=== PATIENT | female | born 1970 | race Caucasian/White ===

== ENCOUNTER → 2016-06-21 15:51 | Outpatient (CLI) | payer MEDICAID | END | disposition home or self-care (01) | LOC: D.MAMMO 11:30 | DX: Z12.31 Encounter for screening mammogram for malignant neoplasm of breast (principal) ==

== ENCOUNTER 2017-09-06 17:38 | Emergency (ER) | payer MEDICAID ==
[~2017-09-06] VITALS: Ht 160 cm; Wt 78.2 kg
[2017-09-06 17:47] VITALS: Ht 160 cm; Wt 78.2 kg
[2017-09-06] MEDS ORDERED: NORVASC10 MG PO (17:50)
[2017-09-06] MEDS ORDERED: ORAPRED ODT10 MG/TAB PO (17:50)
[2017-09-06] MEDS ORDERED: IBUPROFEN800 MG (17:50)
[2017-09-06] MEDS ORDERED: LOPRESSOR25 MG PO (17:50)
[2017-09-06] MEDS ORDERED: XANAX1 MG PO (17:51)
[2017-09-06] MEDS ORDERED: NEURONTIN 300300 MG (17:51)
[2017-09-06] MEDS ORDERED: HYDROCODONE-APA1 TAB (17:52)
[2017-09-06] MEDS ORDERED: TREXALL5 MG PO (17:53)
[2017-09-06] MEDS ORDERED: MORPHINE SULFAT15 M4 PO (17:54)
[2017-09-06] MEDS ORDERED: PREMARIN45 GM VG (17:55)
[2017-09-06] MEDS ORDERED: OMEPRAZOLE20 M1 PO (17:55)
[2017-09-06] MEDS ORDERED: VOLTAREN75 MG PO (18:53)
[2017-09-06 19:27] VITALS: BP 141/79
== END 2017-09-06 19:22 | disposition home or self-care (01) ==
LOC: D.ER 17:38
DX: S93.402A Sprain of unspecified ligament of left ankle, initial encounter (principal); W01.0XXA Fall on same level from slipping, tripping and stumbling without subsequent striking against object, initial encounter; Y93.89 Activity, other specified; Y92.019 Unspecified place in single-family (private) house as the place of occurrence of the external cause; I10 Essential (primary) hypertension; K21.9 Gastro-esophageal reflux disease without esophagitis

== ENCOUNTER → 2018-08-30 10:21 | Outpatient (CLI) | payer MEDICAID ==
[2017-09-06 17:47] VITALS: BMI 30.5
[~2018-08-30 10:21] MED LIST: HYDROCODONE-APA1 TAB; IBUPROFEN800 MG; LOPRESSOR25 MG PO; MORPHINE SULFAT15 M4 PO; NEURONTIN 300300 MG; NORVASC10 MG PO; OMEPRAZOLE20 M1 PO; ORAPRED ODT10 MG/TAB PO; PREMARIN45 GM VG; TREXALL5 MG PO; VOLTAREN75 MG PO; XANAX1 MG PO
== END | disposition home or self-care (01) ==
LOC: D.HCCARDIO 10:21
PROVIDERS: ATTEND Internal Medicine Cardiovascular Disease
DX: I20.9 Angina pectoris, unspecified (principal); R06.02 Shortness of breath

== ENCOUNTER 2018-09-07 07:47 | Outpatient (CLI) | payer MEDICAID ==
[~2018-09-07] VITALS: Ht 160 cm; Wt 80.9 kg
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
[~2018-09-07 07:47] MED LIST changes: -NEURONTIN 300300 MG; +NEURONTIN 300300 MG PO
[2018-09-07] MEDS ORDERED: IBUPROFEN800 MG PO (08:23)
[2018-09-07] MEDS ORDERED: EDARBYCLOR 40-1 EAC1 PO (08:24)
[2018-09-07] MEDS ORDERED: CATAPRES0.1 MG PO (08:24)
[2018-09-07] MEDS ORDERED: FOLIC ACID1 MG PO (08:26)
[2018-09-07] MEDS ORDERED: XELJANZ5 MG PO (08:27)
[2018-09-07 08:29] VITALS: BP 148/78; Ht 160 cm; Wt 80.9 kg
[2018-09-07 08:42] LABS: BASOPHILS 0.1 % (0-2); EOSINOPHILS 0.4 % (0-7); HEMATOCRIT 37.5 % (36.0-48.0); HEMOGLOBIN 12.6 g/dL (12-16); IMMATURE GRANULOCYTES 0.5 % (0-5); LYMPHOCYTES 9.8 % (15-50); MCH 28.8 pg (26.0-34.0); MCHC 33.6 g/dL (31.0-37.0); MCV 85.8 fL (80.0-100.0); MEAN PLATELET VOLUME 8.9 fL (7.4-10.4); MONOCYTES 6.5 % (2-11); NEUTROPHILS 82.7 % (40-80); PLATELET COUNT 236 10x3/uL (130-400); RBC 4.37 10x6/uL (4.00-5.40); WBC 13.8 10x3/uL (4.8-10.8)
[2018-09-07 08:55] LABS: CALC OSMOLALITY 264 mosm/kg (275-300); CALCIUM 9.1 mg/dL (8.5-10.1); CARBON DIOXIDE 24.3 mmol/L (21.0-32.0); CHLORIDE - SERUM 97 mmol/L (98-107); CREATININE - SERUM 0.8 mg/dL (0.6-1.3); GLUCOSE 113 mg/dL (74-106); POTASSIUM - SERUM 4.1 mmol/L (3.5-5.1); SODIUM 131 mmol/L (136-145); UREA NITROGEN 14 mg/dL (7-18); eGFR NON AFRICAN AMERICAN 81 mL/min (90-120)
[2018-09-07] MEDS ORDERED: BAYER CHEWABLE81 MG PO (11:08)
[2018-09-07] MEDS ORDERED: PLAVIX75 MG PO (11:08)
--- NOTE | 2018-09-07 11:32 | NUR ---
PT SITTING UP IN BED, VISITING WITH AND SON IN THE ROOM. PT HAS VOIDED APPROX 600 CC CLEAR YELLOW URINE TO BEDPAN. REQUESTS SODA AND COFFEE AND THESE SERVED. TR BAND IS CDI TO RIGHT WRIST, FINGERS WARM AND CAP REFILL IS BRISK. CALL LIGHT IN REACH.
--- NOTE | 2018-09-07 11:44 | NUR ---
PT HAS TOLERATED PO FLUIDS WITH NO C/O NAUSEA. SANDWICH AT BEDSIDE. TR BAND IS CDI, FINGERS WARM AND CAP REFILL IS BRISK. S[place] AT 49, PT DENIES ANY C/O CHEST PAIN. BP IS 136/65. PT IS ALERT, SITTING UP IN BED VISITING WITH FAMILY, CALL LIGHT IN REACH, DENIES NEEDS AT THIS TIME.
--- NOTE | 2018-09-07 12:07 | NUR ---
PT DENIES ANY C/O. TR BAND IS CDI, FINGERS WARM AND CAP REFILL IS BRISK. FAMILY AT BEDSIDE. PT PHILLIP SANDWICH WITH NO NAUSEA. S[place] AT 54, BP IS 120/64.
--- NOTE | 2018-09-07 12:33 | NUR ---
DR CHAMBERLAIN HAS ROUNDED ON PT. PT DENIES ANY C/O. TR BAND IS CDI, FINGERS WARM AND CAP REFILL IS BRISK. S[place] AT 50, DENIES ANY C/O CHEST PAIN. BP IS 121/63. AT BEDSIDE, DR CHAMBERLAIN HAS ROUNDED ON PT.
--- NOTE | 2018-09-07 13:19 | NUR ---
PT ALERT, DENIES ANY C/O. TR BAND IS CDI, FINGERS WARM AND CAP REFILL IS BRISK. S[place] AT 51, BP IS 134/66. PT SITTING UP IN BED, VISITING WITH FAMILY. HAS VOIDED QS USING BEDPAN. CALL LIGHT IN REACH.
--- NOTE | 2018-09-07 13:44 | OP ---
PATIENT NAME: QASIM JOHN MEDICAL RECORD: [id number] :70 LOCATION:D.CAT ADMISSION DATE: SURGEON: CATARINO CHAMBERLAIN MD DATE OF OPERATION: 09/07/2018 PROCEDURES: 1. PTCA stent LAD. 2. PTCA stent RCA. 3. IFR RCA. 4. Left heart catheterization. 5. Selective coronary angiography. 6. Left ventriculogram. INDICATION: Class 3-4 anginal symptomatology. PROCEDURE IN DETAIL: After informed consent was obtained and after a detailed description of the risks, benefits as well as alternative therapies, the patient elected to proceed with angiogram and angioplasty. The right radial area was prepped and draped in normal sterile fashion. Right radial artery was cannulated via modified Seldinger technique with placement of 6-Kazakh sheath. All catheters exchanged through this sheath. FINDINGS: Left ventriculogram was performed in standard 30-degree TOLBERT view, reveals good cardiac wall motion throughout all segments. Overall ejection fraction estimated at 65%. SELECTIVE CORONARY ANGIOGRAPHY: 1. Left main is with no significant angiographic disease. 2. Left anterior descending has 90% stenosis in the proximal mid vessel. 3. The left circumflex has moderate irregularities, but no flow-limiting stenosis. 4. Right coronary artery has 80% stenosis in the mid vessel. IFR is significantly abnormal. PTCA STENT OF THE LAD: The stent used was a 2.5 x 26 mm [place]. Result was 0% residual stenosis. PTCA STENT OF THE RCA: The stent used was a 3.0 x 38 mm [place]. Result was 0% residual stenosis and after this IFR was repeated and it normalized. OVERALL IMPRESSION: Successful PTCA stent of the LAD and RCA, both going from 80% to 90% initial stenosis to 0% residual. TRANSINT:[id number] Voice Confirmation ID: [id number] DOCUMENT ID: [id number] CATARINO CHAMBERLAIN MD at 1344 CC: [id number] DICTATION DATE: 09/07/18 1056 NET DEVELOPER PROGRAMMER: 09/07/18 1114 [facility] [address] [place] [address]
--- NOTE | 2018-09-07 13:49 | NUR ---
PT SITTING UP IN BED, VISITING WITH SON, DENIES ANY C/O. TR BAND IS CDI, FINGERS WARM AND CAP REFILL IS BRISK.
--- NOTE | 2018-09-07 14:20 | NUR ---
1405 ATTEMPTED TO WEAN AIR FROM TR BAND WITH OOZING NOTED WTIH 2 CC WITHDRAWN, AIR REINSTILLED AND OOZING CEASED. FINGERS WARM AND CAP REFILL IS BRISK. PT DENIES ANY C/O. WILL CONTINUE TO MONITOR.
--- NOTE | 2018-09-07 14:34 | NUR ---
2 CC OF AIR WEANED FROM TR BAND WITH NO BLEEDING NOTED. FINGERS WARM AND CAP REFILL IS BRISK. PT IS ALERT AND DENIES ANY C/O.
--- NOTE | 2018-09-07 14:44 | NUR ---
DC INSTRUCTIONS REVIEWED WITH PT, AND SON WHO VERBALIZE UNDERSTANDING. [employer] PRESCRIPTION AND MED COUNSELOR SHEETS TO PT. PT AND VERBALIZE UNDERSTANDING TO START THIS MEDICATION TOMORROW.
--- NOTE | 2018-09-07 15:06 | NUR ---
3 CC OF AIR WEANED FROM TR ABND WITH NO BLEEDING OR HEMATOMA NOTED. FINGERS WARM AND CAP REFILL IS BRISK. ASSISTED PT ONTO BEDPAN AND PT VOIDED LARGE AMOUNT OF CLEAR YELLOW URINE. PT IS ALERT AND DENIES ANY C/O. FAMILY AT BEDSIDE.
--- NOTE | 2018-09-07 15:37 | NUR ---
1520 ALL REMAINING AIR WEANED FROM TR BAND WTIH NO BLEEDING NOTED. FINGERS WARM AND CAP REFILL IS BRISK. RADIAL PULSE PALPABLE. PT IS ALERT AND DENIES ANY C/O. 1530 TR ABND REMOVED AND 2X2, TEGADERM PLACED TO SITE. FINGERS WARM AND CAP REFILL IS BRISK, RADIAL PULSE PALPABLE. IV DC'D WITH CATH INTACT AND PT IS DRESSING FOR DC TO HOME WITH ASSIST. PT IS ALERT AND DENIES ANY C/O.
--- NOTE | 2018-09-07 15:40 | NUR ---
DRESSING REMAINS CDI TP RIGHT WRIST, NO BLEEDING OR HEMATOMA NOTED. FINGERS WARM AND PULSES PALPABLE. PT DENIES ANY NV DEFICIT TO HAND, PT ESCORTED TO PRIVATE AUTO VIA WC BY NURSE WITH DRIVING HER HOME. HAS ALL PERSONAL BELONGINGS AND DC INSTRUCTIONS AT TIME OF DISCHARGE.
== END 2018-09-07 15:40 | disposition home or self-care (01) ==
LOC: D.CATH 07:47
PROVIDERS: ATTEND Internal Medicine Interventional Cardiology
DX: I25.119 Atherosclerotic heart disease of native coronary artery with unspecified angina pectoris (principal); Z01.812 Encounter for preprocedural laboratory examination

== ENCOUNTER 2019-08-27 07:00 | Day surgery (SDC) | payer MEDICAID ==
[2019-08-26 10:06] LABS: HEMOGLOBIN 12.5 g/dL (12-16); MCH 28.7 pg (26.0-34.0); MCHC 31.3 g/dL (31.0-37.0); MEAN PLATELET VOLUME 8.8 fL (7.4-10.4); RBC 4.35 10x6/uL (4.00-5.40); RDW 15.2 % (11.5-14.5); WBC 11.5 10x3/uL (4.8-10.8)
[~2019-08-27] VITALS: Ht 236.2 cm; Wt 72.6 kg
[~2019-08-27 07:00] MED LIST changes: +BAYER CHEWABLE81 MG PO; +CATAPRES0.1 MG PO; +EDARBYCLOR 40-1 EAC1 PO; +FOLIC ACID1 MG PO; +IBUPROFEN800 MG PO; +PLAVIX75 MG PO; +XELJANZ5 MG PO
[2019-08-27 07:31] VITALS: BP 150/93; Ht 236.2 cm; Wt 72.6 kg
[2019-08-27] MEDS ORDERED: PERCOCET 10-321 EAC1 PO (10:08)
--- NOTE | 2019-08-27 10:45 | NUR ---
PATIENT CRYING STATING "THIS HURTS LIKE HELL" WHEN I OFFERED IV PAIN MEDICATION PT DENIED STATING "I JUST WANT TO GO BACK TO MY ROOM WHERE MY IS". I HAVE EDUCATED HER THAT IF I TAKE HER BACK TO [facility] IV PAIN MEDICATION WILL NO LONGER BE AVAILABLE TO GIVE. SHE VERBALIZED UNDERSTANDING.
--- NOTE | 2019-08-27 11:56 | NUR ---
DC INSTRUCTIONS GIVEN TO PT/SPOUSE. STATE UNDERSTANDING. DC'D IV CATH FULLY INTACT. WILL DC FROM OPS UNIT SHORTLY.
--- NOTE | 2019-08-27 12:11 | NUR ---
PT LEFT UNIT VIA WC AT 1210
--- NOTE | 2019-08-28 07:06 | OP ---
PATIENT NAME: QASIM HOPPER MEDICAL RECORD: [id number] :70 LOCATION:DOV ADMISSION DATE: SURGEON: JAYESH LORA DO DATE OF OPERATION: 08/27/2019 PROCEDURE PERFORMED: Right radial head arthroplasty. PREOPERATIVE DIAGNOSIS: Right radial neck fracture nonunion. POSTOPERATIVE DIAGNOSIS: Right radial neck fracture nonunion. INDICATIONS: Ms. Hopper is a 49-year-old female who has had right elbow pain for quite some time. She does not recall falling, but said this could have happened months or years ago. She came to my office. We x-rayed and saw the nonunion of the radial neck. I informed her that she could do nothing that should cause her quite a bit of pain and it was catching on her and I informed her if that was the case, we could do something surgically and I told her we would do a radial head replacement. I informed of the risk of that including infection, bleeding, damage to nerves and vessels, need for further surgery, damage the radial nerve especially, continued pain, dislocation, further fracture, failure of implants and she is okay with all that and signed a consent. SURGEON: Jayesh Lora DO DESCRIPTION OF PROCEDURE: The patient was taken to the operative suite, laid in supine position, given general anesthetic, 2 grams of Ancef and LMA was placed. She was given a block by anesthesia in the preoperative area prior to going back. We then prepped and draped the right upper extremity. A timeout was performed; everyone was in agreement with the correct side, site, patient and procedure. I then began the incision over the lateral epicondyle distally over the extensor carpi radialis longus tendon and careful dissection made down to that and then was split. Fibers were split. Radial head was exposed and it was removed. I made fresh cut of the radial neck and then I used a broach and broached up to a 9 and seemed to fit well and the 9 stem was trialed with a +2 neck. We got x-rays. I need to grind down the radial neck just a little bit more. We put the implant in and took x-rays and it fit very nicely. The right upper extremity was exsanguinated with an Esmarch prior to starting the procedure and tourniquet was inflated to 250 mmHg, was up for 30 minutes. Once the implant was in, the tourniquet was let down. X-rays were taken and ensured to be in very good position, had good range of motion and no instability. I then closed the extensor carpi radialis longus with a #1 Vicryl, first [id number]-nptop then a running stitch. Vincent Alba, certified surgical assistant softball coach then came in and closed the skin with 2-0 Vicryl inverted fashion, 4-0 Monocryl ran on the skin. Steri-Strips were placed on the skin. She was then dressed with Adaptic, 4 x 4s, and cast padding and then Jesse wrap from the hand all the way up pass the elbow. She was awakened and taken to recovery in stable condition. BLOOD LOSS: Minimal. COMPLICATIONS: None. TRANSINT:[id number] Voice Confirmation ID: [id number] DOCUMENT ID: [id number] OPERATIVE REPORT [id number] QASIM HOPPER MICHAEL D, DO at 0706 CC: [id number] DICTATION DATE: 08/27/19 1014 [employer] SALES: 08/27/19 2211 [facility] 08/27/19 [facility] [address] [place] [address]
== END 2019-08-27 12:10 | disposition home or self-care (01) ==
LOC: D.OPS 07:00 → D.PAN 11:40 → D.OPS 12:10 → D.PAN 14:00
PROVIDERS: Anesthesiology; ATTEND Orthopaedic Surgery
DX: S52.134A Nondisplaced fracture of neck of right radius, initial encounter for closed fracture (principal); X58.XXXA Exposure to other specified factors, initial encounter

== ENCOUNTER 2019-11-28 09:37 | Inpatient (IN) | payer MEDICAID ==
[~2019-11-28] VITALS: Ht 160 cm; Wt 72.7 kg
[~2019-11-28 09:37] MED LIST changes: +PERCOCET 10-321 EAC1 PO
[2019-11-28 10:56] LABS: BASOPHILS 0.2 % (0-2); EOSINOPHILS 0.2 % (0-7); HEMATOCRIT 40.5 % (36.0-48.0); HEMOGLOBIN 13.1 g/dL (12-16); IMMATURE GRANULOCYTES 0.2 % (0-5); LYMPHOCYTES 4.9 % (15-50); MCH 29.6 pg (26.0-34.0); MCHC 32.3 g/dL (31.0-37.0); MCV 91.4 fL (80.0-100.0); MONOCYTES 5.3 % (2-11); NEUTROPHILS 89.2 % (40-80); PLATELET COUNT 220 10x3/uL (130-400); RBC 4.43 10x6/uL (4.00-5.40); WBC 12.4 10x3/uL (4.8-10.8)
[2019-11-28 11:05] LABS: ANION GAP 12.7 mmol/L (8-16); CALCIUM 8.5 mg/dL (8.5-10.1); CARBON DIOXIDE 23.7 mmol/L (21.0-32.0); POTASSIUM - SERUM 3.4 mmol/L (3.5-5.1)
[2019-11-28 11:13] LABS: ALBUMIN 3.7 g/dL (3.4-5.0); BILIRUBIN - TOTAL 0.3 mg/dL (0.2-1.3); MAGNESIUM - SERUM 2.1 mg/dL (1.8-2.4); PROTEIN - SERUM 7.4 g/dL (6.4-8.2)
--- NOTE | 2019-11-28 13:15 | NUR ---
URINE SENT TO THE LAB
--- NOTE | 2019-11-28 13:45 | NUR ---
REPORT RECIEVED FROM OJ IN ER. PATIENT TO FLOOR VIA WHEELCHAIR. DENIES PAIN OR NEEDS. FOOD TRAYS ORDERED. PATIENT ORIENTED TO PLACE, TIME, PERSON, AND SITUATION. BED LOW POSITION, CALL LIGHT IN REACH, WILL CONTINUE TO MONITOR.
[2019-11-28] MEDS ORDERED: ADIPEX-P37.5 M1 PO (13:49)
[2019-11-28 14:00] VITALS: BP 140/83; Ht 160 cm; Wt 72.7 kg
[2019-11-28 18:07] VITALS: BP 122/80
[2019-11-28 20:00] VITALS: BP 184/107
[2019-11-29] VITALS (11 sets, daily range): BP systolic 112–136; BP diastolic 64–83
--- NOTE | 2019-11-29 04:43 | NUR ---
ASSESSED AT THE BEGINNING OF THE SHIFT. PT IS ALERT AND ORIENTED, ABLE TO VERBALIZE NEEDS. SHE RECEIVED TORADOL AROUND 2200 AND THIS SEEMED TO EASE HER PAIN IN THE ARM FRACTURE. LATER IN THE EARY MORNING SHE AWOKE AND WAS HURTING PRETTY BAD AND RECEIVED MORPHINE. SHE HAS HER FRACTURED ARM ELAVATED AND IS SLEEPING WITH HER SIGNIFICANT OTHER. SHE IS AWAKRE SHE MUCH BE READY FOR SURGERY TODAY.
[2019-11-29 06:09] LABS: HEMATOCRIT 37.7 % (36.0-48.0); HEMOGLOBIN 12.1 g/dL (12-16); LYMPHOCYTES 21.3 % (15-50); MCH 29.5 pg (26.0-34.0); MCHC 32.1 g/dL (31.0-37.0); MEAN PLATELET VOLUME 9.4 fL (7.4-10.4); NEUTROPHILS 68.2 % (40-80); PLATELET COUNT 207 10x3/uL (130-400); RDW 14.6 % (11.5-14.5)
[2019-11-29 06:18] LABS: ALBUMIN 3.3 g/dL (3.4-5.0); ALKALINE PHOSPHATASE 130 U/L (30-120); ALT (SGPT) 16 U/L (10-68); BILIRUBIN - TOTAL 0.27 mg/dL (0.2-1.3); CALC OSMOLALITY 267 mosm/kg (275-300); CALCIUM 8.6 mg/dL (8.5-10.1); CARBON DIOXIDE 25.4 mmol/L (21.0-32.0); CHLORIDE - SERUM 101 mmol/L (98-107); CREATININE - SERUM 0.8 mg/dL (0.6-1.3); GLUCOSE 97 mg/dL (74-106); POTASSIUM - SERUM 3.2 mmol/L (3.5-5.1); PROTEIN - SERUM 6.7 g/dL (6.4-8.2); SODIUM 135 mmol/L (136-145); UREA NITROGEN 8 mg/dL (7-18); eGFR NON AFRICAN AMERICAN 81 mL/min (90-120)
[2019-11-29 06:47] LABS: WBC 8.6 10x3/uL (4.8-10.8)
--- NOTE | 2019-11-29 07:48 | NUR ---
PATIENT IN BED ASLEEP, SPOUSE AT BEDSIDE. DENIES ANY PAIN OR NEEDS AT THIS TIME. BED LOW POSITION, CALL LIGHT IN REACH. WILL CONTINUE TO MONITOR.
--- NOTE | 2019-11-29 11:40 | NUR ---
PATIENT TO PROCEDURE VIA BED.
[2019-11-30 04:00] VITALS: BP 142/84
[2019-11-30 05:57] LABS: BASOPHILS 0.1 % (0-2); EOSINOPHILS 0 % (0-7); HEMATOCRIT 37.9 % (36.0-48.0); IMMATURE GRANULOCYTES 0.2 % (0-5); LYMPHOCYTES 5.1 % (15-50); MCH 29.3 pg (26.0-34.0); MCHC 31.7 g/dL (31.0-37.0); MCV 92.4 fL (80.0-100.0); MEAN PLATELET VOLUME 9.7 fL (7.4-10.4); MONOCYTES 6.1 % (2-11); NEUTROPHILS 88.5 % (40-80); PLATELET COUNT 240 10x3/uL (130-400); RDW 15.4 % (11.5-14.5)
[2019-11-30 06:08] LABS: ALBUMIN 2.9 g/dL (3.4-5.0); ALKALINE PHOSPHATASE 126 U/L (30-120); ALT (SGPT) 15 U/L (10-68); BILIRUBIN - TOTAL 0.19 mg/dL (0.2-1.3); CALCIUM 8.5 mg/dL (8.5-10.1); CHLORIDE - SERUM 104 mmol/L (98-107); CREATININE - SERUM 0.8 mg/dL (0.6-1.3); POTASSIUM - SERUM 4.3 mmol/L (3.5-5.1); PROTEIN - SERUM 6.5 g/dL (6.4-8.2); SODIUM 137 mmol/L (136-145); WBC 13.9 10x3/uL (4.8-10.8); eGFR NON AFRICAN AMERICAN 81 mL/min (90-120)
[2019-11-30 06:13] LABS: CALC OSMOLALITY 277 mosm/kg (275-300); GLUCOSE 190 mg/dL (74-106); UREA NITROGEN 11 mg/dL (7-18)
--- NOTE | 2019-11-30 08:57 | OP ---
PATIENT NAME: QASIM HOPPER MEDICAL RECORD: [id number] :70 LOCATION: [id number] ADMISSION DATE:11/29/19 SURGEON: TAMAR LORA DO DATE OF OPERATION: 11/29/2019 PROCEDURE PERFORMED: Right distal radius open reduction internal fixation. PREOPERATIVE DIAGNOSIS: Right distal radius fracture, extraarticular. POSTOPERATIVE DIAGNOSIS: Right distal radius fracture, extraarticular. INDICATIONS: Ms. Hopper is a 49-year-old female who fell yesterday on an outstretched hand and suffered a right distal radius fracture. She could not tolerate the pain, was admitted overnight for surgery today. She was splinted in the ER and admitted for pain in anticipation for surgery today. She is aware of the risks including infection, bleeding, damage to nerves or vessels, malunion, nonunion, failure of hardware, need for further surgery and the rules of no lifting with that arm until released and she signed the consent as well as damage to the median nerve specifically. She received a block by anesthesia in the preoperative area. DESCRIPTION OF PROCEDURE: She was given 2 grams of Ancef preoperatively, taken to the operative suite, laid in supine position, given general anesthetic. Right upper extremity was then prepped and draped in sterile fashion.: LMA was placed. A timeout was performed. Everyone was in agreeance with the correct side, site, patient and procedure. The right upper extremity was then exsanguinated with an Esmarch tourniquet, was inflated to 250 mmHg, it was up for 47 minutes. I then made an incision over the flexor carpi radialis tendon and made careful dissection down to the fracture, peeled off the pronator quadratus exposing the fracture. It was quite comminuted. Once I got good reduction, I put the plate on and once the plate was in adequate position, fixed in the shaft first and then distally and then more screws into the shaft and then put bone chips into the void. She had a large void on the radial side and to the distal radius. These were stuffed with bone chips. The tourniquet was then let down and the site was irrigated. Vincent Alba, certified surgical oncology physician assistant, and closed the wound with 3-0 Vicryl in inverted interrupted fashion and Prineo glue placed on the skin. She was then dressed with Adaptic, 4 x 4s, cast padding, and a volar splint, wrapped with an Jesse wrap, awakened and taken to recovery in stable condition. BLOOD LOSS: Approximately 50 mL. COMPLICATIONS: None. TRANSINT:[id number] Voice Confirmation ID: [id number] DOCUMENT ID: [id number] TAMAR LORA DO at 0857 CC: [id number] DICTATION DATE: 11/29/19 1356 [employer] STRAP: 11/29/19 2246 ADM IN [place] [id number] [place] [id number]
[2019-11-30] MEDS ORDERED: VISTARIL50 MG PO (09:43)
[2019-11-30] MEDS ORDERED: PERCOCET 10-321 EAC1 PO (09:43)
[2019-11-30 09:49] VITALS: BP 157/103
--- NOTE | 2019-11-30 11:29 | NUR ---
IV DCD WITH CATH TIP INTACT. LEFT UNIT VIA WHEELCHAIR FOR TRANSPORT HOME
== END 2019-11-30 11:30 | disposition home or self-care (01) | DRG 563 ==
LOC: D.ER 09:37 → OBSVTIME 13:09 → D.MS 13:09
PROVIDERS: Family Medicine; ADMIT Orthopaedic Surgery; ATTEND Orthopaedic Surgery
DX: S52.501A Unspecified fracture of the lower end of right radius, initial encounter for closed fracture (principal); F17.203 Nicotine dependence unspecified, with withdrawal; W19.XXXA Unspecified fall, initial encounter; I10 Essential (primary) hypertension; F17.200 Nicotine dependence, unspecified, uncomplicated; M06.9 Rheumatoid arthritis, unspecified; M81.0 Age-related osteoporosis without current pathological fracture; M19.90 Unspecified osteoarthritis, unspecified site; F41.9 Anxiety disorder, unspecified; G25.81 Restless legs syndrome; M79.7 Fibromyalgia; Q24.9 Congenital malformation of heart, unspecified

== ENCOUNTER → 2020-08-25 22:18 | Outpatient (CLI) | payer MEDICAID ==
[2020-03-22 01:45] VITALS: BMI 30.8
[~2020-08-25 22:18] MED LIST changes: +ADIPEX-P37.5 M1 PO; +CLARITIN 10 MG10 MG PO; +HYDROCODON-ACE1 EA10 PO; +IPRAT-ALBUT 0.5-3 ML INH; +MUCINEX600 MG PO; +NICODERM CQ1 EAC3 TRANSDERM; +PREDNISONE10 MG PO; +VISTARIL50 MG PO
[2020-08-26 01:23] LABS: BASOPHILS 0.5 % (0-2); EOSINOPHILS 0.4 % (0-7); HEMATOCRIT 37.7 % (36.0-48.0); HEMOGLOBIN 11.6 g/dL (12-16); LYMPHOCYTES 10.4 % (15-50); MCH 27.9 pg (26.0-34.0); MCHC 30.8 g/dL (31.0-37.0); MCV 90.4 fL (80.0-100.0); MONOCYTES 4.6 % (2-11); NEUTROPHILS 84.1 % (40-80); RBC 4.17 10x6/uL (4.00-5.40); RDW 17.2 % (11.5-14.5)
[2020-08-26 01:24] LABS: PLATELET COUNT 336 10x3/uL (130-400)
[2020-08-26 02:27] LABS: ERYTHROCYTE SEDIMENTATION RATE 34 mm/hr (0-30)
== END | disposition home or self-care (01) ==
LOC: D.LABREF 22:18
PROVIDERS: ATTEND Nurse Practitioner Family
DX: M25.521 Pain in right elbow (principal)

== ENCOUNTER 2020-08-28 08:54 | Day surgery (SDC) | payer MEDICAID ==
[~2020-08-28] VITALS: Ht 160 cm; Wt 84.8 kg
[2020-08-28 09:16] LABS: BASOPHILS 0.7 % (0-2); EOSINOPHILS 1.8 % (0-7); HEMATOCRIT 35.4 % (36.0-48.0); HEMOGLOBIN 11.4 g/dL (12-16); LYMPHOCYTES 24.1 % (15-50); MCH 27.9 pg (26.0-34.0); MCHC 32.1 g/dL (31.0-37.0); MCV 86.6 fL (80.0-100.0); MEAN PLATELET VOLUME 6.9 fL (7.4-10.4); MONOCYTES 8.5 % (2-11); NEUTROPHILS 64.9 % (40-80); PLATELET COUNT 348 10x3/uL (130-400); RBC 4.09 10x6/uL (4.00-5.40); RDW 16.7 % (11.5-14.5); WBC 11.5 10x3/uL (4.8-10.8)
[2020-08-28 09:26] LABS: ANION GAP 9.2 mmol/L (8-16); CALCIUM 8.6 mg/dL (8.5-10.1); CARBON DIOXIDE 29.2 mmol/L (21.0-32.0); CREATININE - SERUM 0.9 mg/dL (0.6-1.3); POTASSIUM - SERUM 4.4 mmol/L (3.5-5.1)
[2020-08-28 10:04] VITALS: BP 168/95; Ht 160 cm; Wt 84.8 kg
[2020-08-28 11:01] LABS: CKMB 1.1 U/L (0.0-3.6); CREATINE KINASE 76 UL (21-215)
[2020-08-28 11:02] LABS: TROPONIN-I 0.125 ng/mL (0.000-0.060)
--- NOTE | 2020-08-28 11:11 | NUR ---
1015 PT C/O CHEST PAIN RADIATING UP INTO NECK. PT WARM AND DRY. NO NAUSEA OR VOMITING. 12 LEAD EKG COMPLETED. DURING QUESTIONING PT STATES THAT THIS IS THE SAME TYPE OF PAIN THAT SHE HAD WHEN SHE HAD HER MD. DR EUCEDA NOTIFIED. 1029 CARDIAC ENZYMES HAVE BEEN ORDERED. AYDEN CAMPBELL AT PT'S BEDSIDE TALKING TO PT. PT STATES HER CP IS BECAUSE SHE IS ANXIOUS AND HER BP IS ELEVATED BECAUSE OF THE PAIN IN HER RIGHT ELBOW.
--- NOTE | 2020-08-28 11:16 | NUR ---
1030 IV HAS BEEN STARTED AND VALIUM GIVEN TO PT. 1100 INITIAL TROPIN LEVEL IS ELEVATED 0.131 AND THE MACHINE IS REPEATING TO VERIFY TROPONIN LEVEL. 1110 REPEAT TROPONIN LEVEL IS 0.125. DR LORA AND DR EUCEDA NOTIFIED. CARDIAC CONSULT REQUESTED BY DR LORA. 1115 DR LINARES IS THE PT'S GUITAR MAKER HAND. A REQUEST HAS BEEN SUBMITTED TO HIM FOR EVALUATION. PT HAS BEEN DOWNPLAYING HER CHEST PAIN SINCE SHE FIRST REPORTED HURTING. SHE IS STATING THAT SHE HAS SOME DISCOMFORT IN HER CHEST BUT IT IS NOT RADIATING TO NECK OR ARM. SKING WARM AND DRY. BP 178/93 1140 PHYSICIAN TO PHYSICAN COMMUNICATION BETWEEN DR FIERRO AND DR EUCEDA. DR LINARES TO COME SEE PT
--- NOTE | 2020-08-28 11:55 | NUR ---
1150 DR LINARES AT BEDSIDE EVALUATING PT.
--- NOTE | 2020-08-28 15:10 | NUR ---
1230 PT HAS RECEIVED PLAVIX ORDERED BY DR LINARES. PT GIVEN PERCOCET PRESCRIPTION BY DR LORA FOR RIGHT ELBOW PAIN. SHE STATED HER NORCO WAS NOT GIVING HER PAIN RELIEF AND SHE FELT LIKE HER BP WAS ELEVATED SECONDARY TO THE PAIN. DISCHARGE INSTRUCTIONS REVIEWED WITH PT AND HER WHO VOICE UNDERSTANDING OF THESE INSTRUCTIONS. PT REPORTS NOT HAVING CHEST PAIN AT THIS TIME. SHE UNDERSTANDS THE RATIONALE FOR FOR HER SURGERY BEING POSTPONED AND IS IN AGREEMENT WITH THE MEDICAL [facility] FOR CARDIAC CATHETERIZATION ON MONDAY. PT VERBALIZES FEEDBACK THAT IF SHE HAS CP OVER THE WEEKEND NOT RELIEVED BY NTG THAT SHE WILL GO TO THE EMERGENCY ROOM. SHE AND DR SALDANA DISCUSSED THIS WHILE HE WAS AT HER BEDSIDE. IV WAS DC'D AT 1215. CATHETER TIP INTACT. NO BLEEDING AT SITE. COBAN DRESSING APPLIED. PT IS DRESSED AND READY TO GO HOME. PT TAKEN TO HER TRUCK VIA .
--- NOTE | 2020-09-01 08:13 | CN ---
PATIENT NAME:QASIM JOHN MEDICAL RECORD: [id number] : 70 LOCATION:[facility] ADMIT DATE: ACCOUNT: [id number] CONSULTING PHYSICIAN: ALEXUS LINARES MD REFERRING PHYSICIAN: TAMAR LORA DO DATE OF CONSULTATION: 08/28/2020 HISTORY OF PRESENT ILLNESS: A 50-year-old female well known to me with history of coronary artery disease, status post intervention. She has a history of hypertension and has been having intermittent chest pain over the past week. She feels this is secondary to her upcoming surgery. The fact was in the recovery room, she had chest pain without EKG changes; however, she has been having her rest symptomatology as well. Blood pressure was elevated. We were asked to see her concerning her cardiovascular status. PAST MEDICAL HISTORY: Includes; 1. History of coronary artery disease. 2. Dyslipidemia. 3. Hypertension. 4. Fibromyalgia. MEDICATIONS: Include metoprolol 50 b.i.d., Claritin 10 every day, Xanax 1 mg p.o. q.i.d. p.r.n., aspirin 81 every day, Neurontin 600 mg t.i.d., morphine 15 mg b.i.d. ALLERGIES: MEPERIDINE AND EMERIL. SOCIAL HISTORY: Nonsmoker, nondrinker. Easily takes care of her ADLs. REVIEW OF SYSTEMS: The patient reports easy bruising but reports no swollen glands. The patient reports no fever, no night sweats, no significant weight gain, no significant weight loss. No significant exercise tolerance. The patient reports no dry eyes, no irritation, no vision change. Patient reports no difficulty hearing and no ear pain. Patient reports no frequent nose bleeds or nose and sinus problems. Patient reports on arm pain on exertion. No shortness of breath while lying down. No history of heart murmur. Patient reports no cough, no wheezing or coughing up blood. Patient reports no abdominal pain, no vomiting. Normal appetite. No diarrhea and not vomiting blood. No nausea and no constipation. Patient reports no incontinence. No difficulty urinating. No hematuria. No increased frequency. Patient reports no muscle aches. No weakness, no arthralgias, no back pain. No swelling of the extremities. Patient reports no abnormal mole, no jaundice, no rashes. Reports no loss of consciousness. No weakness and no numbness. No seizures, dizziness, or headaches. The patient reports no depression, no sleep disturbance, feeling safe in a relationship and no alcohol abuse. Patient reports on fatigue. Reports no runny nose or sinus pressure. No itching, no hives, and no frequent sneezing. PHYSICAL EXAMINATION: GENERAL: No acute distress, appears stated age, alert and oriented. VITAL SIGNS: Blood pressure 168/95, pulse 66 and regular. HEENT: Normocephalic, atraumatic. NECK: No bruits are noted. HEART: Regular. Questionable S4 gallop. LUNGS: Good air excursion. CONSULT REPORT [id number] ALVAROQASIM SRIVASTAVA ABDOMEN: Soft and nontender. EXTREMITIES: Pulses 2+. No edema. DIAGNOSTIC DATA: EKG shows nonspecific ST-T changes, old inferior. IMPRESSION: Known history of coronary artery disease with rest symptomatology at this point in time. Loaded with Plavix. Add ARB to her medical regime. PLAN: We will plan for diagnostic angiography, intervention based on the above. TRANSINT:[id number] Voice Confirmation ID: [id number] DOCUMENT ID: [id number] ALEXUS LINARES MD at 0813 CC: [id number] DICTATION DATE: 08/28/20 1205 OBJECT ORIENTED DEVELOPER: 08/28/201937 [facility] 08/28/20 [id number] [place] [address]
== END 2020-08-28 12:30 | disposition home or self-care (01) ==
LOC: D.OPS 08:54
PROVIDERS: Anesthesiology; ATTEND Orthopaedic Surgery
DX: S52.134A Nondisplaced fracture of neck of right radius, initial encounter for closed fracture (principal); I25.10 Atherosclerotic heart disease of native coronary artery without angina pectoris; E78.5 Hyperlipidemia, unspecified; I10 Essential (primary) hypertension; R07.9 Chest pain, unspecified; Z53.8 Procedure and treatment not carried out for other reasons

== ENCOUNTER 2020-08-31 06:40 | Day surgery (SDC) | payer MEDICAID ==
[~2020-08-31] VITALS: Ht 160 cm; Wt 86.5 kg
--- NOTE | ~2020-08-31 | HEMODYNAMI ---
PATIENT:QASIM JOHN MEDICAL RECORD: [id number] : 70 LOCATION:D.CAT ADMISSION DATE: 08/31/20 Generatedon:19:16 Patient name: QASIM JOHN Patient #: [id number] SSN: [id number] : 1970 Date of study: 08/31/2020 Page: Of Hemodynamic Procedure Report Patient Data Patient Demographics Procedure consent was obtained First Name: QASIM Gender: Female Last Name: ALVARO : 1970 [facility] Initial: CAROLA Age: 50 year(s) Patient #: [id number] Race: SSN: [id number] Additional ID: [id number] Contact details [address]: [address] [place] [address] State: [place] City: [place] Zip code: [address] Past Medical History Allergies Allergen Reaction Date Comments Reported Demerol 09/07/2018 Other allergy 03/22/2020 demerol, enbrel Other allergy 08/31/2020 demerol, enbrel Admission Admission Data Admission Date: 08/31/2020 Admission Time: 6:40 Arrival Date: 08/31/2020 Arrival Time: 0:00 Admit Source: Other Insurance Payor: Medicaid [facility] #: [id number] Height (in.): 63 BSA: 1.89 (m2) Height (cm.): 160.02 BMI: 33.76 (kg/m2) Weight (lbs.): 190.59 Weight (kg.): 86.45 Lab Results Lab Result Date: 08/31/2020 Lab Result Time: 0:00 Biochemistry Name Units Result Min Max BUN mg/dl 19 --(----)*- 7 18 Creatinine mg/dl 1 --(--*-)-- 0.6 1.3 eGFR ml/min 61.06945 *-(----)-- 90 120 NONAFRICAN CBC Name Units Result Min Max Hematocrit % 37 *-(----)-- 42 54 Hemoglobin g/dl 13 -*(----)-- 13.5 17.5 Procedure Procedure Types Cath Procedure Diagnostic Procedure [facility] w/Coronaries Sedation Charges Moderate Sedation 40-54 minutes Procedure Description Procedure Date Procedure Date: 08/31/2020 Procedure Start Time: 8:58 Procedure End Time: 9:11 Procedure Staff Name Function Adam Sarkar RN Nurse Everardo Wagoner RN Nurse Rolando Guajardo MD Performing Physician Janice Carrasco RT Scrub Sammi Mohamud RT Monitor Procedure Data Cath Procedure Fluoroscopy Diagnostic fluoroscopy Total fluoroscopy Time: 1.6 time: 1.6 min min Diagnostic fluoroscopy Total fluoroscopy dose: 625 dose: 625 mGy mGy Contrast Material Contrast Material Type Amount (ml) Isovue 300 80 Entry Location Entry Primary Successful Side Size Upsize Upsize Entry Closure Succes sful Closure Location (Fr) 1 (Fr) 2 (Fr) Remarks Device Remarks Femoral Right 5 Fr Exoseal artery Estimated blood loss: 5 ml Diagnostic catheters Device Type Used For End Catheter Placement MULTIPACK JL 4.0 5Fr Left Coronary catheter Angiography MULTIPACK 3DRC 5Fr Right Coronary catheter Angiography MULTIPACK Pigtail 5 Fr LV Angiography catheter MULTIPACK JL 4.0 5Fr Left Coronary catheter Angiography Procedure Complications No complications Procedure Medications Medication Administration Route Dosage 0.9% NaCl I.V. 100 ml/hr Oxygen etCO2 Nasal cannula 2 l/min Heparin Flush Bag added to field 2 bags (1000units/500ml NS) Lidocaine 2% added to field 20 Versed I.V. 1 mg Fentanyl I.V. 50 mcg Versed I.V. 1 mg Fentanyl I.V. 50 mcg Versed I.V. 1 mg Vasotec 2.5 mg Lopressor I.V. 5 mg Hemodynamics Rest BSA: 1.89 (m2) HGB: 13 (g/dl) O2 Consumption: Estimated: 177.66 (ml/min) O2 Cons umption indexed: Estimated:94 (ml/min/m) Heart Rate: 60 (bpm) Pressure Samples Time Site Value (mmHg) Purpose Heart Use Rate(bpm) 9:05 LV 110/30,51 Snapshot 70 9:05 LV 132/40,59 Snapshot 69 Gradients Valve Time Site Site Mean SEP/DFP Peak To Heart Use 1 2 (mmHg) (sec/min) Peak Rate (mmHg) (bpm) Aortic 9:05 LV AO 71 Snapshots Pre Cath Intra NCS Post Cath Vital Signs Time Heart Resp SPO2 etCO2 NIBP (mmHg) Rhythm Pain Sedation Rate (ipm) (%) (mmHg) Status Level (bpm) 8:22:43 59 16 35.9 152/86(109) NSR 0 (11) 10(A) , No pain 8:27:01 61 16 34.4 155/90(118) NSR 0 (11) 10(A) , No pain 8:31:22 60 23 35.9 156/91(119) NSR 0 (11) 10(A) , No pain 8:35:40 63 14 35.9 150/83(121) NSR 0 (11) 10(A) , No pain 8:39:58 64 15 97 34.4 160/96(132) NSR 0 (11) 10(A) , No pain 8:44:18 65 12 98 19.4 159/93(138) NSR 0 (11) 10(A) , No pain 8:48:38 65 14 97 38.9 152/93(133) NSR 0 (11) 10(A) , No pain 8:52:58 64 12 98 38.9 156/89(140) NSR 0 (11) 10(A) , No pain 8:57:20 61 15 98 34.4 145/84(119) NSR 0 (11) 10(A) , No pain 9:01:34 62 14 98 36.7 147/88(114) NSR 0 (11) 10(A) , No pain 9:06:33 67 10 97 41.9 166/89(136) NSR 0 (11) 10(A) , No pain 9:10:51 63 12 98 35.9 146/83(122) NSR 0 (11) 10(A) , No pain Medications Time Medication Route Dose Verified Delivered Reason Notes Ef fectiveness by by 8:28:30 Versed I.V. 1 mg Rolando Everardo for sedation [facility] Tre Wagoner RN, MD 8:28:36 Fentanyl I.V. 50 Rolando Everardo for sedation mcg [facility] Tre Wagoner RN, MD 8:31:14 0.9% NaCl I.V. 100 Rolando Mcgee used for ml/hr [facility] Tre chase MD 8:31:22 Oxygen etCO2 2 Rolando Everardo used for Nasal l/min [facility] Tre Wagoner RN procedure cannula 8:31:32 Heparin Flush added 2 Rolando Rolando used for Bag to bags [facility] procedure (1000units/500ml field MD STRONG NS) 8:31:41 Lidocaine 2% added 20ml Rolando Marshall for local to vial [facility] anesthetic field MD STRONG 8:54:22 Versed I.V. 1 mg Rolando Noleny for sedation [facility] Tre Wagoner RN, MD 8:54:25 Fentanyl I.V. 50 Rolando Noleny for sedation mcg [facility] Tre Wagoner RN, MD 8:58:21 Versed I.V. 1 mg Rolando Everardo for sedation [facility] Tre Wagoner RN, MD 9:05:16 Vasotec IV 2.5 Rolando Noleny for mg [facility] Tre Wagoner RN hypertension 9:05:25 Lopressor I.V. 5 mg Rolando Everardo for [facility] Tre Wagoner RN hypertension Procedure Log Time Note 7:21:46 Informed consent obtained and on chart 7:21:55 Diagnostic Cath Status : Elective 7:22:03 Arrival Date: 08/31/2020 12:00:00 AM 7:22:04 Admit Source: Other 7:22:11 Insurance Payor : Medicaid 7:22:27 ACC Patient presents with Stable Angina CCS Anginal Class 2--Slight limitation of ordinary activity. 7:22:31 Procedure Status Elective Heart Cath (OP). 7:22:35 Time tracking: Regular hours (M-F 7:00 - 5:00) 7:22:40 Plan of Care:Hemodynamics will remain stable., Cardiac rhythm will remain stable., Comfort level will be maintained., Respiratory function will remain adequate., Patient/ family verbilizes understanding of procedure., Procedure tolerated without complication., Recovers from procedure without complications.. 7:22:45 Alarms reviewed by R. N. 7:22:45 Sharps counted by scrub and verified by R.N. 7:40:20 Lab Result : Hemoglobin 13 g/dl 7:40:20 Lab Result : Hematocrit 37 % 7:46:16 Patient Height : 63 inches 7:46:22 Patient Weight : 190.59 lbs 7:54:47 Lab Result : eGFR NONAFRICAN 61.70395 ml/min 7:54:47 Lab Result : Creatinine 1 mg/dl 7:54:47 Lab Result : BUN 19 mg/dl 8:11:00 Everardo Wagoner RN sent for patient. Start room use. 8:16:08 Patient received from Pre/Post Procedure Room to CCL 1 Alert and oriented. Tansferred to table in Supine position. 8:16:10 Warm blankets applied, and laurie hugger turned on for patient comfort. 8:16:10 Correct patient and procedure confirmed by team. 8:16:11 ECG and BP/O2 sat monitors applied to patient. 8:16:14 Full Disclosure recording started 8:16:19 Pre-procedure instructions explained to patient. 8:16:20 Pre-op teaching completed and patient verbalized understanding. 8:16:22 Family in waiting room. 8:16:24 Patient NPO since Midnight. 8:16:42 Patient allergic to Other allergydemerol, enbrel 8:16:45 Is the patient allergic to Iodine/contrast media? No. 8:16:46 Was the patient premedicated? Yes 8:16:48 Is patient on blood thinner?No 8:16:53 Lab results completed and on chart. 8:16:57 Stress Test: no; N/A ? 8:21:37 Vital chart was started 8:26:39 Baseline sample Acquired. 8:26:49 Rhythm: sinus rhythm 8:26:57 Patient diabetic? No. 8:26:59 Previous problem with sedation/anesthesia? No ? 8:27:02 Snore? Yes 8:27:03 Sleep apnea? No 8:27:04 Deviated septum? No 8:27:05 Opens mouth fully? Yes 8:27:06 Sticks out tongue? Yes 8:27:09 Airway obstruction? No ? 8:27:15 Dentures? Yes IN TIGHT 8:27:26 Pre procedure: right dorsailis pedis pulse 2+ Normal; easily identifiable; not easily obliterated 8:27:29 Pre procedure: left dorsailis pedis pulse 2+ Normal; easily identifiable; not easily obliterated 8:27:32 Patient pain scale 0/10 ?. 8:27:37 IV patent on arrival in left antecubital with 0.9% NaCl at O. 8:27:53 Right groin area was prepped with chlora-prep and draped in sterile fashion 8::58 Physician arrived 8::58 --------ALL STOP TIME OUT------ 8:27:59 Final Timeout: patient, procedure, and site verified with staff and physician. All members of the team are in agreement. 8:28:03 Right groin site verified by team. 8:28:06 Fire Safety Assessment: A--An alcohol-based skin anteseptic being used preoperatively., C--Open oxygen or nitrous oxide is being used., D--An ESU, laser, or fiber-optic light is being used. 8:28:15 Physical assessment completed. ASA score P 2 - A patient with mild systemic disease as per Rolando Guajardo MD. 8:28:30 Versed 1 mg I.V. was administered by Everardo Wagoner RN; for sedation; Verbal order read back and verified. 8:28:36 Fentanyl 50 mcg I.V. was administered by Everardo Wagoner RN; for sedation; Verbal order read back and verified. 8:29:45 2) 60-89 Mildly reduced kidney function, and other findings (as for stage 1) point to kidney disease. 8:29:49 Sedation plan: IV Moderate Sedation Medication:Versed, Fentanyl 8:31:14 0.9% NaCl 100 ml/hr I.V. was administered by Everardo Wagoner RN; used for procedure; Verbal order read back and verified. 8:31:22 Oxygen 2 l/min etCO2 Nasal cannula was administered by Everardo Wagoner RN; used for procedure; Verbal order read back and verified. 8:31:32 Heparin Flush Bag (1000units/500ml NS) 2 bags added to field was administered by Rolando Guajardo MD; used for procedure; Verbal order read back and verified. 8:31:41 Lidocaine 2% 20ml vial added to field was administered by Rolando Guajardo MD; for local anesthetic; Verbal order read back and verified. 8:37:51 Risk of Mortality: 0.1 8:38:01 Risk of blood transfusion: 0.4 8:38:05 Risk of JOB: 0.6 8:38:13 Maximum allowable contrast dose (3.7 X eGFR X 0.75)172 ml. 8:38:55 Use device set Femoral Dx 8:38:56 ACIST Syringe (26548) opened to sterile field. 8:38:57 Bag Decanter (2002S) opened to sterile field. 8:38:57 Medline Cath Pack ([id number]) opened to sterile field. 8:38:58 ACIST Hand Control (59726) opened to sterile field. 8:38:59 ACIST Manifold (20990) opened to sterile field. 8:38:59 DIAGNOSTIC Multipack 5Fr catheter set (NS2516) opened to sterile field. 8:39:00 Tegaderm 4 x 4 (1626W) opened to sterile field. 8:39:01 SHEATH 5FR [place] (VDL774) opened to sterile field. 8:39:02 EMERALD Guide Wire (078-730) opened to sterile field. 8:54:22 Versed 1 mg I.V. was administered by Everardo Wagoner RN; for sedation; Verbal order read back and verified. 8:54:25 Fentanyl 50 mcg I.V. was administered by Everardo Wagoner RN; for sedation; Verbal order read back and verified. 8:58:21 Versed 1 mg I.V. was administered by Everardo Wagoner RN; for sedation; Verbal order read back and verified. 8:58:39 Procedure started. 8:58:47 Local anesthetic to right femoral artery with Lidocaine 2% by Rolando Guajardo MD.INITIAL ACCESS ONLY 8:58:59 A 5 Fr sheath was inserted into the Right Femoral artery 8:59:38 A MULTIPACK JL 4.0 5Fr catheter was advanced over the wire and used for Left Coronary Angiography. 8:59:59 LCA angiography performed. 9:00:02 Injector settings: Ml/sec: 3, Volume: 6, 9:01:59 Catheter removed. 9:02:04 A MULTIPACK 3DRC 5Fr catheter was advanced over the wire and used for Right Coronary Angiography. 9:03:27 RCA angiography performed. 9:03:30 Injector settings: Ml/sec: 3, Volume: 6, 9:03:32 Catheter removed. 9:03:37 A MULTIPACK Pigtail 5 Fr catheter was advanced over the wire and used for LV Angiography. 9:05:16 Vasotec 2.5 mg IV was administered by Everardo Wagoner RN; for hypertension; Verbal order read back and verified. 9:05:19 LV hemodynamics recorded. 9:05:21 LV gram done using TOLBERT 9:05:25 Lopressor 5 mg I.V. was administered by Everardo Ciaran RN; for hypertension; Verbal order read back and verified. 9:05:39 EF : 40 % 9:05:46 Catheter removed. 9:07:45 A MULTIPACK JL 4.0 5Fr catheter was advanced over the wire and used for Left Coronary Angiography. 9:07:52 LCA angiography performed. 9:07:55 Injector settings: Ml/sec: 3, Volume: 6, 9:09:26 Catheter removed. 9:09:28 EXOSEAL 5Fr (EX500) opened to sterile field. 9:09:39 Sheath removed intact; hemostasis achieved with Exoseal to the Right Femoral artery. 9:09:47 Procedure ended.(Physican Out) 9:09:59 Fluoroscopy time 01.60 minutes. 9:10:04 Fluoroscopy dose: 625 mGy 9:10:04 Flurop Dose total: 625 9:10:12 Dose Area Product 48831 mGy/cm. 9:10:16 Contrast amount:Isovue 300 80ml. 9:10:18 Maximum allowable dose exceeded? No. 9:10:19 Sharps counted by scrub and verified by R.N. 9:10:20 Insertion/operative site no bleeding no hematoma. 9:10:24 Post-op/insertion site Right Femoral artery dressed using a 4 x 4 and Tegaderm. 9:10:26 Post right femoral artery:stable 9:10:34 Post Procedure Pulses reassessed and unchanged 9:10:38 Post procedure rhythm: unchanged. 9:10:40 Estimated blood loss: 5 ml 9:10:42 Post procedure instruction explained to patient.Patient verbalizes understanding. 9:10:43 Patient needs reinforcement of post procedure teaching. 9:11:34 Procedure type changed to Cath procedure, Diagnostic procedure, LHC, [facility] w/Coronaries, Sedation Charges, Moderate Sedation 40-54 minutes 9:11:35 Procedure and supply charges have been captured, reviewed, submitted and are correct. 9:11:39 Procedure Complication : No complications 9:11:42 Vital chart was stopped 9:11:44 [facility] Findings: MVD- MD will discuss options w/ pt 9:11:46 Operative report dictated upon procedure completion. 9:11:47 See physician's report for complete and final results. 9:11:49 Report given to Pre/Post Procedure Room. 9:11:51 Patient transfered to Pre/Post Procedure Room with Stretcher. 9:11:54 Procedure ended. 9:11:54 Full Disclosure recording stopped 9:11:59 End room use (Document Last) 9:15:15 End room use (Document Last) 9:15:46 End room use (Document Last) Device Usage Item Name Manufacture Quantity Catalog Hospital Part Current Minimal L ot# / Number Charge Number Stock Stock Serial# Code ACIST Acist 1 [id number] [id number] [id number] [id number] 20 Syringe Medical (90451) Systems Inc Bag Microtek 1 710149 54193 990165 5 Decanter Medical Inc. () Medline Medline 1 [id number] 356950 50110 229175 5 Cath Pack ([id number]) ACIST Hand Acist 1 76427 125796 224656 238531 5 Control Medical (80859) Systems Inc ACIST Acist 1 49796 736826 106811 084535 5 Manifold Medical (40727) Systems Inc DIAGNOSTIC Cardinal 1 [id number] 595427 05977 711028 30 Multipack Health 5Fr catheter set (UO7110) Tegaderm 4 3M 1 1626W 979913 444210 684380 5 x 4 (1626W) SHEATH 5FR Terumo 1 VSW875 844225 326366 928170 5 [place] (QIV458) EMERALD Cardinal 1 502-455 177481 201171 538127 5 Guide Wire [facility] (502-455) MULTIPACK Cardinal 1 661550 5 JL 4.0 5Fr Health catheter MULTIPACK Cardinal 1 676462 5 3DRC 5Fr Health catheter MULTIPACK Cardinal 1 273414 5 Pigtail 5 Health Fr catheter EXOSEAL 5Fr Cardinal 1 EX500 799226 885432 938025 10 (EX500) Health Signature Audit [place] Stage Time Signature Unsigned Intra-Procedure 08/31/2020 Sammi Mohamud 9:15:15 AM RT(R) Intra-Procedure 08/31/2020 Everardo Wagoner RN 9:15:46 AM Intra-Procedure 08/31/2020 Rolando Arauz 9:16:05 AM Tre STRONG [facility] [address] [place] [address]
[2020-08-31] MEDS ORDERED: COZAAR50 MG PO (06:56)
[2020-08-31] MEDS ORDERED: PERCOCET 10-321 EAC1 PO (06:57)
[2020-08-31 07:25] VITALS: BP 149/86; Ht 160 cm; Wt 86.5 kg
[2020-08-31 07:26] LABS: BASOPHILS 1.1 % (0-2); HEMOGLOBIN 11.8 g/dL (12-16); MCH 27.7 pg (26.0-34.0); MCV 86.6 fL (80.0-100.0); MEAN PLATELET VOLUME 7.4 fL (7.4-10.4); MONOCYTES 7.4 % (2-11); NEUTROPHILS 71.5 % (40-80); PLATELET COUNT 356 10x3/uL (130-400); RBC 4.27 10x6/uL (4.00-5.40); RDW 16.4 % (11.5-14.5)
[2020-08-31 07:53] LABS: ANION GAP 14.4 mmol/L (8-16); CALCIUM 8.4 mg/dL (8.5-10.1); CARBON DIOXIDE 25.4 mmol/L (21.0-32.0); CHOL - HDL RATIO 4.4 ratio (2.3-4.1); LDL-HDL RATIO 2.9 ratio (1.5-3.5); POTASSIUM - SERUM 4.8 mmol/L (3.5-5.1)
--- NOTE | 2020-08-31 09:26 | NUR ---
PT ARRIVED BY STRETCHER. PLACED ON MONITORS. ASSESSMENT COMPLETED. VSS AT THIS TIME. CALL LIGHT WITHIN REACH. PT'S AT BEDSIDE. DR. LINARES ROUNDED AND SPOKE WITH PT'S AND PT.
--- NOTE | 2020-08-31 09:41 | NUR ---
PT RESTING COMFORTABLY. VSS. RIGHT GROIN DRESSING C/D/I. NO S/S OF HEMATOMA NOTED. CALL LIGHT WITHIN REACH. FAMILY AT BEDSIDE. DENIES NAUSEA.
--- NOTE | 2020-08-31 10:10 | NUR ---
PT RESTING COMFORTABLY. VSS AT THIS TIME. CALL LIGHT WITHIN REACH. RIGHT GROIN DRESSING C/D/I. NO S/S OF HEMATOMA NOTED. RIGHT PEDAL PULSE PALPABLE. NO NEEDS AT THIS TIME. DENIES NAUSEA.
[2020-08-31] MEDS ORDERED: ALDACTONE25 MG PO (10:19)
--- NOTE | 2020-08-31 10:30 | NUR ---
RIGHT GROIN DRESSING C/D/I. NO S/S OF HEMATOMA NOTED. RIGHT PEDAL PULSE PALPABLE. PT ALERT AND ORIENTED. HEAD OF BED INC TO 30 DEGREES. TOLERATED WELL. PT SET UP WITH SANDWICH TRAY AND DRINK. DENIES NAUSEA.
--- NOTE | 2020-08-31 11:05 | NUR ---
RIGHT GROIN DRESSING C/D/I. NO S/S OF HEMATOMA NOTED. RIGHT PEDAL PULSE PALPABLE. PIV D/C'D WITH CATH TIP INTACT. TOLERATED WELL. DISCUSSED DISCHARGE INSTRUCTIONS WITH PT AND PT'S FAMILY. THEY VOICED UNDERSTANDING. PT AMBULATED TO RESTROOM. VOIDED WITHOUT DIFFICULTY. STEADY GAIT NOTED. BACK TO ROOM TO GET DRESSED. NO ASSISTANCE NEEDED.
--- NOTE | 2020-08-31 11:20 | NUR ---
RIGHT GROIN DRESSING C/D/I. NO S/S OF HEMATOMA NOTED. PT REFUSED TO GO IN WHEELCHAIR. NO S/S OF DISTRESS NOTED. AMBULATED TO HER VEHICLE WITH HER . ALL BELONGINGS IN HAND.
--- NOTE | 2020-09-01 08:13 | OP ---
PATIENT NAME: QASIM JOHN MEDICAL RECORD: [id number] :70 LOCATION:D.CAT ADMISSION DATE: SURGEON: ALEXUS LINARES MD DATE OF OPERATION: 08/31/2020 PROCEDURE PERFORMED: Left heart catheterization, selective coronary angiography, right femoral approach. CATHETERS: A 5-Fijian sheath, 5/4 left and right Mayo, 5/4 pig. CATHETERS: 1. A 5-Fijian sheath. 2. A 5/4 right Mayo 5/4 pig. The procedure was well tolerated patient to our sheath removed. ExoSeal device was placed. FINDINGS: Left ventriculography 30-degree TOLBERT view shows inferior basilar to mid inferior wall hypokinesis. LV function mildly reduced 40-45%. CORONARY ANATOMY: Left main: Left main was free of disease. LAD has diffuse in-stent restenosis approximately 80% in the previously placed stent. This was a drug-eluting stent appears to be a reasonable target distally. Circumflex has 2 moderate stenosis of 70% in its mid portion right coronary was totally occluded, fills via left to right collaterals. IMPRESSION: Aggressive restenosis and drug-eluting stents. LAD appears to be a 2.5 vessel certainly concerned about a secondary stenosis of intermediate vessel may be best suited for coronary artery bypass grafting. Dr. Garvin will be consulted for this purpose. TRANSINT:[id number] Voice Confirmation ID: [id number] DOCUMENT ID: [id number] ALEXUS LINARES MD at 0813 CC: [id number] DICTATION DATE: 08/31/20921 BIOLOGICAL SCIENCE AIDE: 08/31/20 1028 [facility] 08/31/[address] [address]
== END 2020-08-31 11:20 | disposition home or self-care (01) ==
LOC: D.CATH 06:40
PROVIDERS: ATTEND Internal Medicine Interventional Cardiology
DX: I25.118 Atherosclerotic heart disease of native coronary artery with other forms of angina pectoris (principal); R94.39 Abnormal result of other cardiovascular function study; R07.9 Chest pain, unspecified; I10 Essential (primary) hypertension; E78.5 Hyperlipidemia, unspecified; M79.7 Fibromyalgia

== ENCOUNTER → 2020-09-08 11:23 | Outpatient (CLI) | payer MEDICAID ==
[2020-08-31 07:25] VITALS: BMI 33.7
[~2020-09-08 11:23] MED LIST changes: +ALDACTONE25 MG PO; +COZAAR50 MG PO
== END | disposition home or self-care (01) ==
LOC: D.US 09-07 13:00
PROVIDERS: ATTEND Thoracic Surgery (Cardiothoracic Vascular Surgery)
DX: I25.10 Atherosclerotic heart disease of native coronary artery without angina pectoris (principal)

== ENCOUNTER 2020-09-08 11:34 | Inpatient (IN) | payer MEDICAID ==
[~2020-09-08] VITALS: Ht 160 cm; Wt 84.7 kg
[2020-09-08 13:25] LABS: BASOPHILS 0.5 % (0-2); EOSINOPHILS 0.2 % (0-7); HEMATOCRIT 36.2 % (36.0-48.0); HEMOGLOBIN 11.6 g/dL (12-16); LYMPHOCYTES 10.9 % (15-50); MCH 28.2 pg (26.0-34.0); MCV 88.3 fL (80.0-100.0); MEAN PLATELET VOLUME 7.1 fL (7.4-10.4); MONOCYTES 6.1 % (2-11); NEUTROPHILS 82.3 % (40-80); PLATELET COUNT 320 10x3/uL (130-400); RDW 17.2 % (11.5-14.5); WBC 10.6 10x3/uL (4.8-10.8)
[2020-09-08 13:58] LABS: ALBUMIN 3.6 g/dL (3.4-5.0); ANION GAP 12.8 mmol/L (8-16); BILIRUBIN - TOTAL 0.27 mg/dL (0.2-1.3); CALCIUM 8.7 mg/dL (8.5-10.1); CARBON DIOXIDE 25.3 mmol/L (21.0-32.0); PHOSPHOROUS 3.7 mg/dL (2.5-4.9); POTASSIUM - SERUM 5.1 mmol/L (3.5-5.1); PROTEIN - SERUM 7.8 g/dL (6.4-8.2); T4 THYROXIN - FREE 0.75 ng/dL (0.76-1.46); THYROID STIMULATING HORMONE 0.28 uIU/mL (0.36-3.74); URIC ACID 4.4 mg/dL (2.6-7.2)
[2020-09-08 14:05] LABS: APTT 32.4 SECONDS (22.8-39.4); INR 1.03 (0.85-1.17); PROTIME 12.5 SECONDS (11.6-15.0)
[2020-09-08 14:08] LABS: BILIRUBIN NEGATIVE (NEGATIVE); KETONE NEGATIVE mg/dL (< 1+); NITRITE NEGATIVE (NEGATIVE); PH 6.5 (5.0-8.0); SQUAMOUS EPITHELIAL <1 HPF (0-4); UROBILINOGEN NORMAL mg/dL (< 2); WHITE CELLS - URINE <1 HPF (0-4)
[2020-09-08] MEDS ORDERED: HYDROCODON-ACE1 EA10 PO (14:17)
[2020-09-10] VITALS (38 sets, daily range): BP systolic 103–138; BP diastolic 54–95; BMI 34.4; BMI 34.6
--- NOTE | 2020-09-10 08:02 | NUR ---
CVL AND ARTERIAL LINE PLACED BY ANESTHESIA, SCD AND STOCKING APPLIED POST OP ON LEFT LEG, RIGHT LEG WRAPPED, ON POSITION EXTRA CARE AND PRECAUTIONS TAKEN WITH RIGHT ARM DUE TO BROKEN ELBOW, PADDED AND SECURED WITH MADAI NI.
[2020-09-10 14:57] LABS: BASOPHILS 0.4 % (0-2); EOSINOPHILS 0.3 % (0-7); HEMATOCRIT 32.4 % (36.0-48.0); HEMOGLOBIN 10.3 g/dL (12-16); MCHC 31.7 g/dL (31.0-37.0); MCV 88.5 fL (80.0-100.0); MEAN PLATELET VOLUME 7.1 fL (7.4-10.4); MONOCYTES 6.9 % (2-11); NEUTROPHILS 83.4 % (40-80); PLATELET COUNT 250 10x3/uL (130-400); RBC 3.66 10x6/uL (4.00-5.40); RDW 17.3 % (11.5-14.5); WBC 13.5 10x3/uL (4.8-10.8)
--- NOTE | 2020-09-10 15:00 | NUR ---
ARRIVED TO UNIT AT 1411 VIA BED. CONNECTED TO CLAM DIGGER. ON VENT 7.5 ETT 22 AT THE LIP MIDLINE. VENT SETTINGS SIMV, R-14, TV 500, FIO2 40%, PS 10, PEEP 5. HAS RIJ CVL. PLASMOLYTE AT 100ML/HR AND NITRO AT 10ML/HR HOUR. CLEVIPREX INITIATED UPON ARRIVAL. BOTH NITROGLYCERIN AND CLEVIPREX HAVE BEEN TURNED OFF. ZINACEF INFUSING AT 12.8ML/HR. MIDSTERNAL INCISION LARD TUB WASHER. SUBTERNAL CT TO 20CM WALL SUCTION, NO AIR LEAK NOTED. SILVANA DRAIN X 2, TPM WIRE CONNECTED. TPM CURRENTLY OFF. JUAN TO RIGHT FOREARM SECURED IN PLACE. FRACTURE TO RIGHT FOREARM. LEFT ARM HARVEST SITES IN VEELYN BANDAGE. RLE HARVEST SITES COVERED WITH COBAN DRESSING. MECHELLE HOSE AND SCD TO LLE. WRIST RESTRAINTS INITIATED UPON ARRIVAL PER ORDER. POWERS CATHETER IN PLACE. NURSE AT BEDSIDE FOR CLOSE MONITORING.
[2020-09-10 15:25] LABS: ALKALINE PHOSPHATASE 90 U/L (30-120); ALT (SGPT) 21 U/L (10-68); BILIRUBIN - TOTAL 0.44 mg/dL (0.2-1.3); CALC OSMOLALITY 291 mosm/kg (275-300); CALCIUM 7.7 mg/dL (8.5-10.1); CARBON DIOXIDE 24.5 mmol/L (21.0-32.0); CHLORIDE - SERUM 109 mmol/L (98-107); CREATININE - SERUM 0.8 mg/dL (0.6-1.3); GLUCOSE 171 mg/dL (74-106); POTASSIUM - SERUM 4.5 mmol/L (3.5-5.1); PROTEIN - SERUM 5.5 g/dL (6.4-8.2); SODIUM 144 mmol/L (136-145); UREA NITROGEN 14 mg/dL (7-18); eGFR NON AFRICAN AMERICAN 80 mL/min (90-120)
[2020-09-10 15:48] LABS: APTT 32.3 SECONDS (22.8-39.4); INR 1.29 (0.85-1.17); PROTIME 14.9 SECONDS (11.6-15.0)
--- NOTE | 2020-09-10 16:32 | NUR ---
CARDIOLOGY PAGED AND DR. GONZALES PAGED AT THIS TIME. WAITING ORDNANCE KEEPER BACK.
--- NOTE | 2020-09-10 16:48 | NUR ---
ORTHOPEDICS ONCALL PAGED AT THIS TIME. WAITING CHILD AND ADOLESCENT THERAPIST BACK.
--- NOTE | 2020-09-10 17:19 | NUR ---
LASHONDA SIMMONS WITH FAMILY MEDICINE PAGED AT THIS TIME.
[2020-09-11] VITALS (63 sets, daily range): BP systolic 107–136; BP diastolic 57–72; Ht 160 cm; Wt 84.7 kg
[2020-09-11 05:39] LABS: HEMATOCRIT 29.3 % (36.0-48.0); HEMOGLOBIN 9.4 g/dL (12-16); MCH 28.4 pg (26.0-34.0); MCHC 32.1 g/dL (31.0-37.0); MCV 88.5 fL (80.0-100.0); MEAN PLATELET VOLUME 7.9 fL (7.4-10.4); RBC 3.31 10x6/uL (4.00-5.40); RDW 17.6 % (11.5-14.5); WBC 11.9 10x3/uL (4.8-10.8)
--- NOTE | 2020-09-11 06:24 | NUR ---
Shift summary: Patient arousable to touch with sedation, drifts back to sleep. No sign of distress. Sedation off at 0600. Dressing changed to substernal chest tube sites, cleansed with betadine covered with sterile 4x4s and transparent dressing, biodisc placed to temporary pacer wire x 1. No sign of infection to incision sites. Vessel harvest sites cleansed with betadine, left open to air, skin well approximated with adhesive in place, no ointment applied to sites. Suture in place at substernal sites. Bed bath given, no CHG available, oral care provided.
[2020-09-11 06:25] LABS: ALBUMIN 2.5 g/dL (3.4-5.0); ALKALINE PHOSPHATASE 82 U/L (30-120); ALT (SGPT) 19 U/L (10-68); BILIRUBIN - TOTAL 0.34 mg/dL (0.2-1.3); CALC OSMOLALITY 287 mosm/kg (275-300); CALCIUM 7.2 mg/dL (8.5-10.1); CARBON DIOXIDE 22.2 mmol/L (21.0-32.0); CHLORIDE - SERUM 110 mmol/L (98-107); CREATININE - SERUM 0.6 mg/dL (0.6-1.3); GLUCOSE 163 mg/dL (74-106); POTASSIUM - SERUM 4.4 mmol/L (3.5-5.1); PROTEIN - SERUM 5.4 g/dL (6.4-8.2); SODIUM 143 mmol/L (136-145); UREA NITROGEN 11 mg/dL (7-18); eGFR NON AFRICAN AMERICAN > 90 mL/min (90-120)
--- NOTE | 2020-09-11 08:28 | OP ---
PATIENT NAME: QASIM JOHN MEDICAL RECORD: [id number] :70 LOCATION:D.[id number] ADMISSION DATE:09/10/20 SURGEON: VIMAL JENKINS MD DATE OF OPERATION: 09/10/2020 SURGEON: Vimal Jenkins MD PROCEDURES PERFORMED: 1. Coronary artery bypass graft times 3 (left internal mammary artery to LAD, radial artery from aorta to posterior descending artery, reverse saphenous vein graft from aorta to obtuse marginal). Two arterial and one venous conduit. 2. Left radial artery harvest. 3. Endoscopic saphenous vein harvest. PREOPERATIVE DIAGNOSIS: Coronary artery disease with acute coronary syndrome after anesthesia for fractured right arm. POSTOPERATIVE DIAGNOSIS: Coronary artery disease with acute coronary syndrome after anesthesia for fractured right arm with history of intracoronary stents, smoking, and COPD. ANESTHESIA: General endotracheal anesthesia. ESTIMATED BLOOD LOSS: Total cardiopulmonary bypass with Cell Saver retransfusion. COMPLICATIONS: None. SPECIMENS: DANIAL lymph node. CONDITION: Stable. DISPOSITION: To the CV ICU. COMPLICATIONS: None. OPERATIVE FINDINGS: 1. Transesophageal echocardiography revealed good contractility about 45% ejection fraction with septal dyskinesis before and after cardiopulmonary bypass. 2. Dual vein system of the right lower extremity. 3. Diagonal with severe disease and not grafted LAD 1.5 mm. Good Doppler flow after anastomosis. 4. Radial artery was a good conduit harvested open harvest left upper extremity. The PDA 1.5 mm good flow after anastomosis. 5. Obtuse marginal 1.5 mm with severe disease. 6. The patient had significant hypoxemia after cardiopulmonary bypass requiring bronchodilator therapy. OPERATIVE INDICATION: Coronary artery disease with acute coronary syndrome and restenosis LAD stent and occlusion of right coronary stent over a 6 month period after normal catheterization. PROCEDURE IN DETAIL: The patient was brought to the operative suite. General anesthesia was obtained. The patient was prepped and draped. Greater saphenous OPERATIVE REPORT [id number] QASIM JOHN vein harvest endoscopic for right lower extremity. It was dual vein system. Both pieces were harvested. The side branches were tied. Skin sites were oversewn. The leg was irrigated and closed in 2 layers. Left upper extremity open harvest was performed with an incision in the volar surface of the arm over the radial artery from just below the wrist crease to the proximal arm below the antecubital fossa. A portion of vein was removed overlying the radial artery. The radial artery was dissected out. Side branches were clipped, proximally to the level of the deep radial and distally 2 cm proximal to the wrist crease. The patient was bradycardic; therefore calcium channel blockers were not used. The vessel was ligated proximally and distally and removed. Stumps were oversewn. The vessels perfused with blood and papaverine containing solution and made hemostatic. The arm was closed in 2 layers. Dermabond on the skin wrapped and placed on the patient's side with appropriate padding. Median sternotomy incision was made. Subcutaneous tissue divided with electrocautery. Sternum was divided with a saw. The left hemisternum was elevated and the left pleural cavity was entered. Left internal mammary vein was taken as a pedicle graft. Sternal retractor was placed. Pericardium was opened. Heparin was given. Aorta was cannulated. Dual stage venous cannula was inserted. The internal mammary clipped distally and made ready for anastomosis. Activated clotting times were appropriately elevated. The patient was placed on cardiopulmonary bypass. Sites for distal anastomoses were selected. The patient's temperature had drifted downwardly. Antegrade cardioplegic cannula was inserted. Crossclamp was placed. Cardioplegia given antegrade and this was repeated at 15-20 minute intervals including down the completed vein grafts. Distal anastomosis was performed in standard technique. Proximal anastomosis with a 3.5 punch for the radial artery, 4.0 for the vein graft. The vein graft was deaired, and the patient resumed spontaneous rhythm after one defibrillation. The patient fully rewarmed, weaned from cardiopulmonary bypass and stable. The patient was decannulated. The cannula sites were oversewn. Protamine was given gradually appropriately. The left chest was evacuated and irrigated. A separate drain was placed in the right chest. The drains were placed in the mediastinum, one apically on the left. Ventricular pacing wire was placed. Pericardial fat was approximated in the midline. Internal mammary harvest site inspected for bleeding. Sternum was closed with wires. Fascia was closed. Subcutaneous tissues were closed. Skin was closed. Dermabond was placed. The needle and sponge counts were reported as correct and the patient was taken to the ICU in stable condition. TRANSINT:[id number] Voice Confirmation ID: [id number] DOCUMENT ID: [id number] OPERATIVE REPORT [id number] QASIM JOHN DANIEL W MD at 0828 CC: NICHOLE MADRID and ALEXUS LINARES MD [id number] DICTATION DATE: 09/10/20 1424 DRAPERY WORKER: 09/10/20 1859 ADM IN [facility] [address] [id number]
--- NOTE | 2020-09-11 09:23 | NUR ---
0715-RECIEVED AWAKE AND ABLE TO NOD CORRECTLY TO QUESTIONS-VENT A/C-DIPRIVAN OFF-RR 22- 0800-ABG DRAWN-VENT CHANGED TO SIMV -RR 55-MARKED INCREASE IN WHEEZES INSPIRATORY/EXPIRATORY-WITH MARKED DECREASE IN A/E-RETURNED TO A/C 14-DIPRIVAN RESTARTED-ET SUCTION WITH SALINE LAVAGE DONE BY RT FOR SMALL AMOUNT OF THICK CLEAR MUCUS-BEAU ACHIEVED OF 2 0850-DR JENKINS AT BEDSIDE-INFORMED OF SIMV RESULTS-DIRECTION CHANGED FOR DR GONZALES TO CONTINUE VENT MANAGEMENT-ST ON MONITOR-INFORMED OF RARE /OCC AIRLEAK NOTED IN ANTERIOR DESIGNATED TUBE 0915- AT BEDSIDE-STRESSED ONE VISITOR ONLY AND DUE TO SERIOUS CONDITION SHOULD BE PRIMARY NEXT OF KIN-HE IDENTIFIED SELF THAT-INFORMED OF ATTEMPTED REMOVAL OF VENTILATOR AND POOR RESULT DUE TO SAME -BEAU 1
--- NOTE | 2020-09-11 11:18 | TEE ---
PATIENT:QASIM JOHN MEDICAL RECORD: [id number] LOCATION:[place] [address] AGE OF PATIENT: 50 ADMISSION DATE: 09/10/20 SEX: F REFERRING PHYSICIAN: INTERPRETING PHYSICIAN: ALEXUS LINARES MD TRANSESOPHAGEAL ECHOCARDIOGRAM Date: 09/10/20 MARIA TERESA CHARGE Y INDICATIONS: CABG PREMEDICATIONS: PATIENT'S RESPONSE PROCEDURE DOPPLER MEASUREMENTS: LVIT LA PA RA LVOT RVOT Asc. Ao AV Gradient Peak AV Mean AV Area MV Gradient Peak MV Mean MV Area INTERPRETATION: Doppler: 2-D: COLOR FLOW DOPPLER NORMAL SALINE STUDY: MISCELLANOUS: DIAGNOSIS: PLAN: Bag Machine Operator:3 Dr. Morales Wet Process Miller Head Assistant: Karen LIGHT COMMENTS: DATE OF SERVICE: 09/10/2020 PROCEDURE: Intraoperative MARIA TERESA. Preoperatively, shows normal LV wall motion, normal wall thickening, EF 55%. Aortic valve is tricuspid. No evidence of stenosis by Doppler interrogation. Left atrium appears normal. Mitral valve appears normal. Mild MR. Postoperatively, good wall motion, thickening of all segments, EF greater than TRANSESOPHAGEAL ECHOCARDIOGRAM REPORT [id number] QASIM JOHN 55%. Aortic valve is tricuspid, good valve excursion. Left atrium appears normal. Mitral valve appears normal. Mild MR. TRANSINT:[id number] Voice Confirmation ID: [id number] DOCUMENT ID: [id number] at 1118 CC: [id number] DICTATION DATE: 09/10/20 1505 HEADING AND PRIMING OPERATOR: 09/10/20 2328 ADM IN [facility] [address] [id number]
[2020-09-12] VITALS (72 sets, daily range): BP systolic 103–145; BP diastolic 55–76
[2020-09-12 04:41] LABS: HEMATOCRIT 25.8 % (36.0-48.0); HEMOGLOBIN 8.3 g/dL (12-16); MCHC 32.2 g/dL (31.0-37.0); MCV 86.8 fL (80.0-100.0); MEAN PLATELET VOLUME 7.7 fL (7.4-10.4); RBC 2.98 10x6/uL (4.00-5.40); RDW 17.2 % (11.5-14.5); WBC 12.9 10x3/uL (4.8-10.8)
[2020-09-12 05:01] LABS: ALBUMIN 2.2 g/dL (3.4-5.0); ALKALINE PHOSPHATASE 77 U/L (30-120); BILIRUBIN - TOTAL 0.31 mg/dL (0.2-1.3); CALCIUM 7.4 mg/dL (8.5-10.1); CARBON DIOXIDE 22.8 mmol/L (21.0-32.0); CHLORIDE - SERUM 107 mmol/L (98-107); CREATININE - SERUM 0.5 mg/dL (0.6-1.3); GLUCOSE 134 mg/dL (74-106); PROTEIN - SERUM 5.3 g/dL (6.4-8.2); SODIUM 139 mmol/L (136-145); eGFR NON AFRICAN AMERICAN > 90 mL/min (90-120)
[2020-09-12 05:02] LABS: ALT (SGPT) 14 U/L (10-68); CALC OSMOLALITY 277 mosm/kg (275-300); POTASSIUM - SERUM 3.5 mmol/L (3.5-5.1); UREA NITROGEN 8 mg/dL (7-18)
--- NOTE | 2020-09-12 10:15 | NUR ---
0800: ASSUMED CARE OF PATIENT.
[2020-09-13] VITALS (93 sets, daily range): BP systolic 102–159; BP diastolic 58–86
[2020-09-13 05:03] LABS: HEMATOCRIT 25.5 % (36.0-48.0); HEMOGLOBIN 8.5 g/dL (12-16); MCH 28.9 pg (26.0-34.0); MCHC 33.4 g/dL (31.0-37.0); MCV 86.6 fL (80.0-100.0); MEAN PLATELET VOLUME 7.9 fL (7.4-10.4); RBC 2.95 10x6/uL (4.00-5.40); RDW 16.8 % (11.5-14.5); WBC 8.6 10x3/uL (4.8-10.8)
[2020-09-13 05:13] LABS: ALBUMIN 1.9 g/dL (3.4-5.0); ALKALINE PHOSPHATASE 69 U/L (30-120); ALT (SGPT) 15 U/L (10-68); BILIRUBIN - TOTAL 0.25 mg/dL (0.2-1.3); CALC OSMOLALITY 273 mosm/kg (275-300); CALCIUM 7.4 mg/dL (8.5-10.1); CARBON DIOXIDE 24.3 mmol/L (21.0-32.0); CHLORIDE - SERUM 106 mmol/L (98-107); CREATININE - SERUM 0.5 mg/dL (0.6-1.3); GLUCOSE 127 mg/dL (74-106); POTASSIUM - SERUM 3.7 mmol/L (3.5-5.1); PROTEIN - SERUM 5.4 g/dL (6.4-8.2); SODIUM 137 mmol/L (136-145); UREA NITROGEN 7 mg/dL (7-18); eGFR NON AFRICAN AMERICAN > 90 mL/min (90-120)
[2020-09-14] VITALS (97 sets, daily range): BP systolic 115–157; BP diastolic 62–98
[2020-09-14 05:59] LABS: MCH 28.8 pg (26.0-34.0); MCHC 33.5 g/dL (31.0-37.0); MCV 86.1 fL (80.0-100.0); MEAN PLATELET VOLUME 8.5 fL (7.4-10.4); RDW 16.8 % (11.5-14.5); WBC 8.6 10x3/uL (4.8-10.8)
[2020-09-14 06:00] LABS: ALBUMIN 1.8 g/dL (3.4-5.0); ALKALINE PHOSPHATASE 75 U/L (30-120); BILIRUBIN - TOTAL 0.37 mg/dL (0.2-1.3); CALCIUM 7.6 mg/dL (8.5-10.1); CARBON DIOXIDE 23.6 mmol/L (21.0-32.0); CHLORIDE - SERUM 106 mmol/L (98-107); CREATININE - SERUM 0.5 mg/dL (0.6-1.3); GLUCOSE 135 mg/dL (74-106); POTASSIUM - SERUM 3.6 mmol/L (3.5-5.1); PROTEIN - SERUM 5.8 g/dL (6.4-8.2); SODIUM 138 mmol/L (136-145); eGFR NON AFRICAN AMERICAN > 90 mL/min (90-120)
[2020-09-14 06:04] LABS: ALT (SGPT) 20 U/L (10-68); CALC OSMOLALITY 276 mosm/kg (275-300); UREA NITROGEN 10 mg/dL (7-18)
[2020-09-14 06:20] LABS: HEMATOCRIT 30.9 % (36.0-48.0); HEMOGLOBIN 10.3 g/dL (12-16); RBC 3.59 10x6/uL (4.00-5.40)
--- NOTE | 2020-09-14 10:57 | NUR ---
Nutrition Follow-up: POD 4 CABG. Intubated/sedated. TF started over the weekend; running @ 30 mL/hr this AM. Diprivan @ 31.7 mL/hr; provides 837 kcal/day. Diet: Pulmocare - goal rate 40 mL/hr Wt: 207# (09/14); 195.1# (09/10) Labs noted: Glu 135, Ca 7.6, Alb 1.8 Meds noted: Pepcid, Humulin, Lasix, KCl, Diprivan, D5 1/2NS @ 40 -Pulmocare @ 40 mL/hr provides 1440 kcal (67% est needs) & 60 g protein (67-86% est needs) daily; Diprivan providing 837 kcal (39% est needs) daily. -RD follow-up: 09/16
--- NOTE | 2020-09-14 15:51 | NUR ---
A LINE DCD PER PROTOCOL
[2020-09-15] VITALS (78 sets, daily range): BP systolic 94–162; BP diastolic 60–100
[2020-09-15 04:40] LABS: BASOPHILS 0.5 % (0-2); EOSINOPHILS 0.7 % (0-7); HEMATOCRIT 29.6 % (36.0-48.0); HEMOGLOBIN 9.8 g/dL (12-16); LYMPHOCYTES 3.9 % (15-50); MCH 28.8 pg (26.0-34.0); MCHC 33.1 g/dL (31.0-37.0); MCV 87.1 fL (80.0-100.0); MEAN PLATELET VOLUME 7.8 fL (7.4-10.4); MONOCYTES 4.6 % (2-11); NEUTROPHILS 90.3 % (40-80); RDW 16.3 % (11.5-14.5); WBC 9.9 10x3/uL (4.8-10.8)
[2020-09-15 05:05] LABS: ALBUMIN 1.9 g/dL (3.4-5.0); ALKALINE PHOSPHATASE 82 U/L (30-120); ALT (SGPT) 22 U/L (10-68); BILIRUBIN - TOTAL 0.32 mg/dL (0.2-1.3); CALCIUM 8.1 mg/dL (8.5-10.1); CARBON DIOXIDE 23.4 mmol/L (21.0-32.0); CHLORIDE - SERUM 106 mmol/L (98-107); CREATININE - SERUM 0.6 mg/dL (0.6-1.3); MAGNESIUM - SERUM 2.4 mg/dL (1.8-2.4); PHOSPHOROUS 3.5 mg/dL (2.5-4.9); PROTEIN - SERUM 6.4 g/dL (6.4-8.2); SODIUM 139 mmol/L (136-145); eGFR NON AFRICAN AMERICAN > 90 mL/min (90-120)
[2020-09-15 05:09] LABS: PLATELET COUNT 233 10x3/uL (130-400)
[2020-09-15 05:10] LABS: CALC OSMOLALITY 283 mosm/kg (275-300); GLUCOSE 201 mg/dL (74-106); POTASSIUM - SERUM 4.6 mmol/L (3.5-5.1); UREA NITROGEN 13 mg/dL (7-18)
[2020-09-16] VITALS (25 sets, daily range): BP systolic 98–164; BP diastolic 60–89
[2020-09-16 06:04] LABS: BASOPHILS 0.2 % (0-2); EOSINOPHILS 0.1 % (0-7); HEMATOCRIT 29.9 % (36.0-48.0); HEMOGLOBIN 9.6 g/dL (12-16); LYMPHOCYTES 4.9 % (15-50); MCH 28.4 pg (26.0-34.0); MCHC 32.2 g/dL (31.0-37.0); MCV 88.2 fL (80.0-100.0); MEAN PLATELET VOLUME 8.5 fL (7.4-10.4); MONOCYTES 5.4 % (2-11); NEUTROPHILS 89.4 % (40-80); PLATELET COUNT 265 10x3/uL (130-400); RBC 3.39 10x6/uL (4.00-5.40); WBC 9.5 10x3/uL (4.8-10.8)
[2020-09-16 06:14] LABS: ALBUMIN 1.9 g/dL (3.4-5.0); ALKALINE PHOSPHATASE 77 U/L (30-120); BILIRUBIN - TOTAL 0.28 mg/dL (0.2-1.3); CALCIUM 8.1 mg/dL (8.5-10.1); CARBON DIOXIDE 23.1 mmol/L (21.0-32.0); CHLORIDE - SERUM 109 mmol/L (98-107); CREATININE - SERUM 0.6 mg/dL (0.6-1.3); GLUCOSE 191 mg/dL (74-106); MAGNESIUM - SERUM 2.5 mg/dL (1.8-2.4); POTASSIUM - SERUM 4.5 mmol/L (3.5-5.1); PROTEIN - SERUM 6.2 g/dL (6.4-8.2); SODIUM 142 mmol/L (136-145); eGFR NON AFRICAN AMERICAN > 90 mL/min (90-120)
[2020-09-16 06:46] LABS: ALT (SGPT) 39 U/L (10-68); CALC OSMOLALITY 292 mosm/kg (275-300); PHOSPHOROUS 4.5 mg/dL (2.5-4.9); UREA NITROGEN 27 mg/dL (7-18)
--- NOTE | 2020-09-16 10:14 | NUR ---
DIPROVAN TITRATING DOWN AND PRECIDEX TITRATING UP IN ATTEMPTS TO CPAP TODAY. DISCUSSED WITH RT.
--- NOTE | 2020-09-16 11:06 | NUR ---
Nutrition Follow-up: POD 6 CABG. TF off this AM; nursing reports that they ran out of Pulmocare but ordered some from the kitchen. Was tolerating TF prior to running out. Diprivan running @ 17.3 mL/hr at time of visit; provides 457 kcal/day. Diet: Pulmocare - goal rate 40 mL/hr. Wt: 199.5# (09/16); 195.1# (09/10) Last BM: 09/16 per chart Labs noted: Glu 191, Ca 8.1, Mg 2.5, Alb 1.9 Meds noted: Solumedrol, Pepcid, Humulin, Lasix, KCl, Diprivan, D5 1/2NS @ 40 -Resume TF when formula received. -Monitor wt. -RD follow-up: 09/18
--- NOTE | 2020-09-16 13:01 | NUR ---
PT EXTUBATED TO 4.5L NC. RESTRAINTS OFF PRECIDEX OFF.
--- NOTE | 2020-09-16 14:22 | NUR ---
STARTED I.S. PT CAN PULL 500 X 3. INSTRUCTED ORDERS TO PT AND FAMILY.
--- NOTE | 2020-09-16 14:46 | NUR ---
SBP 170,HR 83. HYDRALIZINE GIVEN.
--- NOTE | 2020-09-16 15:06 | NUR ---
PT C0 PAIN TO INCISION/CHEST AND IS NOT SWALLOWING WELL YET. PHONED DR MACHUCA 1MG MS ORDERED.
[2020-09-17] VITALS (23 sets, daily range): BP systolic 97–145; BP diastolic 63–101
[2020-09-17 05:33] LABS: BASOPHILS 0.1 % (0-2); EOSINOPHILS 0 % (0-7); HEMATOCRIT 31.8 % (36.0-48.0); HEMOGLOBIN 10.2 g/dL (12-16); LYMPHOCYTES 5.4 % (15-50); MCH 28.3 pg (26.0-34.0); MCHC 32.3 g/dL (31.0-37.0); MCV 87.8 fL (80.0-100.0); MEAN PLATELET VOLUME 7.7 fL (7.4-10.4); MONOCYTES 6.3 % (2-11); NEUTROPHILS 88.2 % (40-80); RBC 3.62 10x6/uL (4.00-5.40); RDW 16.6 % (11.5-14.5); WBC 10.7 10x3/uL (4.8-10.8)
[2020-09-17 05:34] LABS: PLATELET COUNT 379 10x3/uL (130-400)
[2020-09-17 05:44] LABS: ALBUMIN 2.1 g/dL (3.4-5.0); ALKALINE PHOSPHATASE 89 U/L (30-120); ALT (SGPT) 50 U/L (10-68); BILIRUBIN - TOTAL 0.29 mg/dL (0.2-1.3); CALC OSMOLALITY 291 mosm/kg (275-300); CALCIUM 8.1 mg/dL (8.5-10.1); CHLORIDE - SERUM 110 mmol/L (98-107); CREATININE - SERUM 0.7 mg/dL (0.6-1.3); GLUCOSE 119 mg/dL (74-106); MAGNESIUM - SERUM 2.4 mg/dL (1.8-2.4); PHOSPHOROUS 4.9 mg/dL (2.5-4.9); POTASSIUM - SERUM 4.4 mmol/L (3.5-5.1); PROTEIN - SERUM 6.6 g/dL (6.4-8.2); SODIUM 143 mmol/L (136-145); UREA NITROGEN 28 mg/dL (7-18); eGFR NON AFRICAN AMERICAN > 90 mL/min (90-120)
--- NOTE | 2020-09-17 15:07 | NUR ---
PT OOB TO CHAIR WITH PT. [facility] TODAY. RECOMENDATIONS HOINEY THICK WITH PUREE DIET. MEDS CRUSHED AND GIVEN.
[2020-09-18] VITALS (23 sets, daily range): BP systolic 108–166; BP diastolic 59–102
[2020-09-18 05:11] LABS: HEMOGLOBIN 11.1 g/dL (12-16); MCH 28.5 pg (26.0-34.0); MCHC 32.5 g/dL (31.0-37.0); MCV 87.7 fL (80.0-100.0); MEAN PLATELET VOLUME 7.8 fL (7.4-10.4); RBC 3.88 10x6/uL (4.00-5.40); RDW 15.9 % (11.5-14.5); WBC 10.1 10x3/uL (4.8-10.8)
[2020-09-18 06:24] LABS: ALBUMIN 2.3 g/dL (3.4-5.0); ALKALINE PHOSPHATASE 92 U/L (30-120); BILIRUBIN - TOTAL 0.39 mg/dL (0.2-1.3); CALC OSMOLALITY 282 mosm/kg (275-300); CALCIUM 8.5 mg/dL (8.5-10.1); CARBON DIOXIDE 23.5 mmol/L (21.0-32.0); CHLORIDE - SERUM 104 mmol/L (98-107); CREATININE - SERUM 0.6 mg/dL (0.6-1.3); GLUCOSE 86 mg/dL (74-106); POTASSIUM - SERUM 4.4 mmol/L (3.5-5.1); PROTEIN - SERUM 6.8 g/dL (6.4-8.2); SODIUM 138 mmol/L (136-145); UREA NITROGEN 34 mg/dL (7-18); eGFR NON AFRICAN AMERICAN > 90 mL/min (90-120)
[2020-09-18 06:25] LABS: ALT (SGPT) 127 U/L (10-68)
--- NOTE | 2020-09-18 11:08 | NUR ---
Nutrition Reassessment/Follow-up: POD 8 CABG. Extubated 09/16. Procal @ 75 mL/hr started yesterday; provides 441 kcal (24-28% est needs) & 54 g protein (72-90% est needs) daily. ST following. Currently on puree with nectar thick liquids. Pt does not like current consistencies and reports poor PO intake. Discussed in IDT rounds; Ensure added. Diet: Cardiac, Puree, Cut And Shoot Thick Liquids Wt: 197# (09/17); 195.1# (09/10)Adj BW: 135.5# Labs noted: Alb 2.3, elev LFTs Meds noted: Solumedrol, Pepcid, Humulin Est needs: 2369-4554 kcal/day (25-30 kcal/kg adj BW) 60-75 g protein/day (1-1.2 g/kg adj BW) 0185-1980 mL fluid/day (1 mL/kcal) or per MD Nutrition Dx: -Inadequate energy intake R/T recent extubation, diet consistency AEB poor PO intake reported. Nutrition Goals: -PO intake >=75% avg of meals/snacks. -Meet est fluid needs without fluid overload. -Stable dry wt. -Glu at or near normal. Nutrition Intervention: -Encourage PO intake and honor food preferences within diet restrictions. -+Ensure with meals per Dr. Siddiqi. -When pt eating better, rec d/c Procal. -Monitor wt. -RD will follow up within 3-4 days.
--- NOTE | 2020-09-18 15:23 | NUR ---
DR. JENKINS HERE. MEDISTINAL CHEST TUBES AND R SILVANA DRAIN DC'D BY DR. JENKINS. TEMP PACING WIRE ALSO REMOVED. SITE DRESSED WITH 4X4S AND TEGADERM.
[2020-09-19] VITALS (22 sets, daily range): BP systolic 90–138; BP diastolic 51–85
[2020-09-19 06:14] LABS: HEMOGLOBIN 11.4 g/dL (12-16)
[2020-09-19 06:17] LABS: BASOPHILS 1.1 % (0-2); EOSINOPHILS 0.9 % (0-7); LYMPHOCYTES 20.8 % (15-50); MCH 28.2 pg (26.0-34.0); MCHC 32.5 g/dL (31.0-37.0); MEAN PLATELET VOLUME 8.1 fL (7.4-10.4); MONOCYTES 9.5 % (2-11); NEUTROPHILS 67.7 % (40-80); RBC 4.02 10x6/uL (4.00-5.40); WBC 11.5 10x3/uL (4.8-10.8)
[2020-09-19 06:44] LABS: PLATELET COUNT 329 10x3/uL (130-400)
[2020-09-19 07:14] LABS: ALBUMIN 2.4 g/dL (3.4-5.0); ALKALINE PHOSPHATASE 100 U/L (30-120); ALT (SGPT) 104 U/L (10-68); CALCIUM 8.5 mg/dL (8.5-10.1); CARBON DIOXIDE 23.7 mmol/L (21.0-32.0); CHLORIDE - SERUM 102 mmol/L (98-107); CREATININE - SERUM 0.6 mg/dL (0.6-1.3); POTASSIUM - SERUM 3.8 mmol/L (3.5-5.1); PROTEIN - SERUM 6.8 g/dL (6.4-8.2); SODIUM 136 mmol/L (136-145); eGFR NON AFRICAN AMERICAN > 90 mL/min (90-120)
[2020-09-19 07:18] LABS: CALC OSMOLALITY 273 mosm/kg (275-300); GLUCOSE 70 mg/dL (74-106); UREA NITROGEN 24 mg/dL (7-18)
--- NOTE | 2020-09-19 14:47 | NUR ---
1330: DR. JENKINS HERE AND MICHAEL'Heladio SMITH. 1345: Lewis ACKERMAN. SITE DRESSED WITH 2X2 AND TEGADERM.
[2020-09-20] VITALS (14 sets, daily range): BP systolic 98–125; BP diastolic 57–76
[2020-09-20 08:13] LABS: HEMATOCRIT 35.6 % (36.0-48.0); HEMOGLOBIN 11.2 g/dL (12-16); MCH 27.7 pg (26.0-34.0); MCHC 31.6 g/dL (31.0-37.0); MCV 87.9 fL (80.0-100.0); MEAN PLATELET VOLUME 7.3 fL (7.4-10.4); RBC 4.05 10x6/uL (4.00-5.40); RDW 15.7 % (11.5-14.5); WBC 12.6 10x3/uL (4.8-10.8)
[2020-09-20 08:36] LABS: ALBUMIN 2.6 g/dL (3.4-5.0); ALKALINE PHOSPHATASE 95 U/L (30-120); BILIRUBIN - TOTAL 0.28 mg/dL (0.2-1.3); CALCIUM 8.1 mg/dL (8.5-10.1); CARBON DIOXIDE 20.9 mmol/L (21.0-32.0); CHLORIDE - SERUM 104 mmol/L (98-107); CREATININE - SERUM 0.6 mg/dL (0.6-1.3); POTASSIUM - SERUM 4.1 mmol/L (3.5-5.1); PROTEIN - SERUM 6.3 g/dL (6.4-8.2); SODIUM 137 mmol/L (136-145); UREA NITROGEN 23 mg/dL (7-18); eGFR NON AFRICAN AMERICAN > 90 mL/min (90-120)
[2020-09-20 08:38] LABS: ALT (SGPT) 74 U/L (10-68); CALC OSMOLALITY 275 mosm/kg (275-300)
[2020-09-20 08:40] LABS: GLUCOSE 70 mg/dL (74-106)
--- NOTE | 2020-09-20 12:30 | NUR ---
DR. JENKINS AND DR. MACHUCA HERE. CONDITION UPDATE GIVEN. WALKING WITH IN HALLWAY APPROXIMATELY 500 FEET FOR 2ND TIME TODAY. PLAN TO DISCHARGE TOMORROW.
[2020-09-21 06:00] VITALS: BP 140/78
[2020-09-21] MEDS ORDERED: COZAAR25 MG PO (10:49)
[2020-09-21] MEDS ORDERED: PREDNISONE20 MG PO (11:05)
[2020-09-21] MEDS ORDERED: PERCOCET 5-3251 TAB PO (11:06)
[2020-09-21 11:30] VITALS: BP 107/64
--- NOTE | 2020-09-21 13:44 | NUR ---
Nutrition/Consult: Eating better with diet advancement. Ate 100% of breakfast this AM. Received consult for cardiac & diabetes education. Discussed limiting salt, fried foods, concentrated sugars, carbs. Pt with regular Dr. Sanchez & Elvin Blackwell on tray table. Somewhat resistant to information. Noted plans to d/c today. Diet: Cardiac Wt: 186# (09/21) Labs reviewed Meds noted: Micro K, Prednisone, Humulin, Folate, Senokot, Colace -Discussed cardiac & diabetic diets. -RD will follow up within 3-4 days if pt still admitted.
== END 2020-09-21 15:23 | disposition home or self-care (01) | DRG 235 ==
LOC: D.CVICU 09-10 05:00 → D.SDCHOLD 09-10 05:00 → D.CVICU 09-10 13:21
PROVIDERS: Internal Medicine Pulmonary Disease; ADMIT Thoracic Surgery (Cardiothoracic Vascular Surgery); ATTEND Thoracic Surgery (Cardiothoracic Vascular Surgery)
PROC: 021109W Bypass Coronary Artery, Two Arteries from Aorta with Autologous Venous Tissue, Open Approach (ICD-10-PCS; 2020-09-10)
PROC: 06BP4ZZ Excision of Right Saphenous Vein, Percutaneous Endoscopic Approach (ICD-10-PCS; 2020-09-10)
PROC: 05BA0ZZ Excision of Left Brachial Vein, Open Approach (ICD-10-PCS; 2020-09-10)
PROC: 0210099 Bypass Coronary Artery, One Artery from Left Internal Mammary with Autologous Venous Tissue, Open Approach (ICD-10-PCS; principal; 2020-09-10 09:00)
DX: I25.10 Atherosclerotic heart disease of native coronary artery without angina pectoris (principal); J96.01 Acute respiratory failure with hypoxia; D62 Acute posthemorrhagic anemia; J44.1 Chronic obstructive pulmonary disease with (acute) exacerbation; J98.11 Atelectasis; I10 Essential (primary) hypertension; K21.9 Gastro-esophageal reflux disease without esophagitis; Z72.0 Tobacco use; M79.7 Fibromyalgia; Z79.82 Long term (current) use of aspirin; S52.121A Displaced fracture of head of right radius, initial encounter for closed fracture; X58.XXXA Exposure to other specified factors, initial encounter; F41.9 Anxiety disorder, unspecified; R53.81 Other malaise